=== PATIENT | male | born 1940 | race Caucasian/White ===

== ENCOUNTER 2017-04-18 12:51 | Inpatient (IN) | payer MEDICARE, BC ==
[2017-04-18] MEDS ORDERED: Albuterol Sulfate 2.5 mg/0.5 ml Neb ONE (13:30)
[2017-04-18] MEDS ORDERED: Albuterol Sulfate 2.5 mg/3 ml Neb ONE (13:31)
[2017-04-18 13:52] LABS: Bilirubin Small (Negative); Blood, Urine Negative (Negative); Glucose, Urine (Dipstick) Negative (Negative); Ketone, Urine Trace mg/dL (Negative); Nitrite Negative (Negative); Protein, Urine (Dipstick) 30 mg/dL (Neg-Trace)
[2017-04-18 13:53] LABS: RBC/HPF 0-3 HPF (0-3); WBC/HPF 21-50 HPF (0-3)
[2017-04-18 14:07] LABS: Hyaline Casts/LPF 0-3 HYALINE CAST LPF (0-3 Hyaline); Yeast-All Forms None Seen HPF (None Seen)
[2017-04-18 14:08] LABS: Bacteria/HPF 2+ HPF (None Seen); Renal Epithelial 0-3 HPF (0-3); Squamous Epithelial 0-3 HPF (0-3); Transitional Epithelial 0-3 HPF (0-3)
[2017-04-18 14:36] LABS: Hematocrit 48.1 % (42.0-52.0); Mean Platelet Volume 6.4 fL (7.4-10.4); Red Blood Cell (RBC) Count 5.18 mill/uL (4.70-6.10); White Blood Cell (WBC) Count 13.5 thou/uL (4.8-10.8)
--- NOTE | 2017-04-18 14:38 | RAD ---
AP CHEST: Indication: Dyspnea, altered mental status. Comparison: 03-13-16 FINDINGS: There is stable cardiomegaly. Pulmonary vasculature appears within normal limits. No airspace consol idation, pleural effusion, or pneumothorax is evident. No acute osseous abnormality is evident. Ther e is stable elevation of the right hemidiaphragm which can be seen with rotator cuff insufficiency. IMPRESSION: Stable cardiomegaly. POS: [facility]
[2017-04-18] MEDS ORDERED: cefTRIAXone\\ROCEPHIN 2 GM VIAL ONE (14:44)
[2017-04-18] MEDS ORDERED: Sodium Chloride 0.9% 100 ML ONE (14:45)
[2017-04-18 14:57] LABS: Neutrophil 68 % (42-75)
[2017-04-18 14:59] LABS: ALT (SGPT) 15 U/L (8-55); AST (SGOT) 20 U/L (5-34); Alkaline Phosphatase 154 U/L (40-150); Anion Gap 15 mmol/L (10-20); BUN (Urea Nitrogen) 22 mg/dL (8.4-25.7); CK (CPK) 155 U/L (30-200); Calc. Creatinine Clearance 0 mL/min (70-130); Calcium 9.5 mg/dL (7.8-10.44); Carbon Dioxide 26 mmol/L (23-31); Chloride 100 mmol/L (98-107); Estimated GFR-MDRD 65; Globulin 4.5 g/dL (2.4-3.5); Protein, Total 8.2 g/dL (5.8-8.1)
[2017-04-18 15:02] LABS: Troponin I Less than 0.010 ng/mL (< 0.028)
[2017-04-18] MEDS ORDERED: Acetaminophen 500 MG TAB ONE (16:10)
[2017-04-18] MEDS ORDERED: Acetaminophen 650 MG Suppository ONE (16:24)
[2017-04-18] MEDS ORDERED: Acetaminophen 650 MG Suppository PR PRN (17:43)
[2017-04-18] MEDS ORDERED: Acetaminophen 325 MG TAB PO PRN (17:43)
[2017-04-18 18:06] LABS: Amphetamine Not Detected (NotDetected); Methadone Not Detected (NotDetected); Methamphetamine Not Detected (NotDetected)
[2017-04-18 18:19] LABS: Troponin I 0.018 ng/mL (< 0.028)
[2017-04-18] MEDS ORDERED: Ondansetron ODT 4 MG TAB SL PRN (18:26)
[2017-04-18] MEDS ORDERED: Ondansetron HCl/PF 4 MG/2 ML Vial IVP PRN (18:26)
--- NOTE | 2017-04-18 18:57 | HP ---
PRIMARY CARE PROVIDER: Dr. Pepper Dooley. CHIEF COMPLAINT: Altered mental status. HISTORY OF PRESENT ILLNESS: Mr. Spaulding is a pleasant 76-year-old gentleman, who was seen at [facility] on 04/18/2017. The patient is unable to provide any history. His family h ad left for home. History was obtained from review of medical chart as well as from discussion with the emergency room physician. Mr. Spaulding reportedly had West Nile virus infection several years ago and has some sequelae from it. He also reportedly does not tolerate narcotic medications and usually becomes very confused. The pa rell was brought to the emergency room by his ex-, who reports that he was recently in the [facility] where he was on multiple medications including opiates. [facility] because of concern that he was not reacting well to the narcotics. Three days ago, he had a cough. She gave him some cough medicine, which had codeine in it. She did not realize it at that time. The patient has reportedly been drowsy since then. He was also compl aining of lower back pain and has not had much oral intake. He was reportedly talking the days prior to these events. REVIEW OF SYSTEMS: Could not be obtained because of patient's altered mental status. The patient was admitted at this facility in 03/2016 for syncope. PAST MEDICAL HISTORY: Significant for myocardial infarction, coronary artery disease, hypertension, dyslipidemia, and West Nile virus infection, anxiety, falls, right subdural hematoma in 2016, and d ementia. PAST SURGICAL HISTORY: Significant for splenectomy, left wrist open reduction and internal fixation . PSYCHIATRIC HISTORY: None. SOCIAL HISTORY: Patient reportedly chews tobacco. No history of alcohol use or recreational drug u se. FAMILY HISTORY: Significant for breast cancer in patient's mother. ALLERGIES: The patient is allergic to opiates. CURRENT MEDICATIONS: Aspirin 81 mg daily, metoprolol 50 mg daily. PHYSICAL EXAMINATION: GENERAL: Mr. Spaulding is awake, but not alert. VITAL SIGNS: Blood pressure is 162/88, pulse is 85, he is breathing at rate of 20 and saturating 94 % on room air. Rectal temperature is 100.3 degrees Fahrenheit. Earlier, he had a respiratory rate of 28 and rectal temperature of 101.4 degrees Fahrenheit. EYES: No scleral icterus. No conjunctival pallor. ENT: Dry mucosal membranes, no oropharyngeal erythema or exudates. NECK: Supple, nontender, trachea midline, no thyromegaly. RESPIRATORY: Accessory muscles of breathing are not active. Chest wall movements are symmetric pedro aterally. LUNGS: Clear to auscultation without wheeze, rhonchi or crepitations. CARDIOVASCULAR: S1 and S2 are heard, regular. Peripheral pulses palpable. No carotid bruit, no pe ricardial rub. ABDOMEN: Soft, nontender, bowel sounds heard, no hepatomegaly, no splenomegaly. NEUROLOGIC: Full neurologic examination was not possible secondary to the patient's noncooperation. The patient is moving all four extremities. There is no facial droop. Tongue appears midline. D eep tendon reflexes are 2+, plantar reflexes are downgoing bilaterally. MUSCULOSKELETAL: The patient is moving all four extremities. Normal passive range of movement at b oth elbows, both shoulders, both hips and both knees. SKIN: He has sacral erythema. He also has scratch arechiga over both shins. No subcutaneous nodules. LYMPHATIC: No cervical lymphadenopathy. PSYCHIATRIC: Unable to assess mood, affect and orientation to person, place, and time. LABORATORY DATA: Mr. Spaulding's labs and investigations were reviewed. I have reviewed his electrocard iogram, which shows normal sinus rhythm, no ST changes to suggest an acute coronary syndrome. I hav e also reviewed his chest x-ray, which does not show any pulmonary infiltrates. Laboratory investig ation show leukocytosis with 13,500 white cells, of which 68% are neutrophils, normal hemoglobin, no rmal platelet count, normal electrolytes, normal creatinine, elevated alkaline phosphatase of 154, e levated serum total protein of 8.2, normal total bilirubin, normal AST, normal ALT, normal calcium a nd normal lactic acid. Urinalysis is positive for glucose, trace ketones, small amount of bilirubin and leukocyte esterase. Urine bacteria is positive. ASSESSMENT AND PLAN: Mr. Spaulding is a pleasant 76-year-old gentleman who was seen at [facility] on 04/18/2017. His problem list includes: 1. Sepsis: Mr. Rodríguezs meets the criteria for sepsis, source of infection presumed to be urine. I will await cultures, including blood cultures. For now, Mr. Spaulding will be started on empiric antibio tics and intravenous fluids. He has already received a dose of vancomycin and Rocephin. I will con tinue vancomycin and switch him to Zosyn until cultures are available. 2. Encephalopathy: Etiology is unclear, could be secondary to infectious causes. Could be seconda ry to other causes as well. We will check CT scan of the brain to rule out any intracranial causes. We will also check TSH to investigate endocrine causes. We will check urine drug screen to rule o ut toxic causes. We will continue to investigate for other causes of encephalopathy. 3. Coronary artery disease. Patient reportedly did not verbalize any chest pain. First troponin I is normal. We will recheck troponin. 4. Hypertension: Continue home medications once clarified, monitor vital signs and titrate antihyp ertensives as needed. 5. Dyslipidemia: Stable. Many thanks for allowing me to participate in your patient's care. Please feel free to contact me w ith any questions or concerns. Code status could not be addressed because of patient's altered ment al status. This will be addressed in the future. LEVEL OF RISK: High. LEVEL OF COMPLEXITY: High.
--- NOTE | 2017-04-18 19:20 | CT ---
CT HEAD WITHOUT IV CONTRAST: Date: 04-18-17 History: Encephalopathy. Altered mental status. Comparison: 03-13-16 FINDINGS: Again noted are chronic small vessel ischemic changes and cerebral volume loss, the chronic small ve ssel ischemic changes may be minimally progressed from the prior exam. There is no evidence of an ac ak chin cortical infarction, hemorrhage, mass effect, or midline shift. Ventricular system is normal in size, shape, and position for the degree of sulcal atrophy. Tiny low density foci are again seen in the right cerebellar hemisphere, likely related to remote infarction. No other interval change. IMPRESSION: 1. No acute intracranial abnormalities demonstrated. 2. Chronic small vessel ischemic changes and cerebral volume loss. 3. Remote infarction right cerebellar hemisphere. POS: [facility]
[2017-04-18 20:10] VITALS: BMI 21.9
[2017-04-18 21:27] LABS: Troponin I 0.031 ng/mL (< 0.028)
[2017-04-18] MEDS: Piperacillin/Tazobactam 4.5 GM in Sodium Chloride 0.9% 100 ML IVPB SCH (21:53)
[2017-04-19] MEDS ORDERED: Sodium Chloride 0.9% 1,000 ML IV SCH (03:30)
[2017-04-19] MEDS: Piperacillin/Tazobactam 4.5 GM in Sodium Chloride 0.9% 100 ML IVPB SCH ×4 (04:11→21:52)
[2017-04-19] MEDS: Vancomycin HCl 750 MG in Sodium Chloride 0.9% 250 ML 250 ML IVPB SCH ×2 (04:14→18:47)
[2017-04-19 06:14] LABS: Band 2 % (5-11); Hematocrit 44.2 % (42.0-52.0); Mean Platelet Volume 7.2 fL (7.4-10.4); Myelocyte 1 % (0-0); Neutrophil 70 % (42-75); Red Blood Cell (RBC) Count 4.77 mill/uL (4.70-6.10); White Blood Cell (WBC) Count 10.7 thou/uL (4.8-10.8)
[2017-04-19 06:25] LABS: Anion Gap 13 mmol/L (10-20); BUN (Urea Nitrogen) 16 mg/dL (8.4-25.7); Calc. Creatinine Clearance 76 mL/min (70-130); Carbon Dioxide 23 mmol/L (23-31); Chloride 105 mmol/L (98-107); Estimated GFR-MDRD Greater than 90
[2017-04-19] MEDS: Enoxaparin Sodium 40 MG/0.4 ML SYRINGE SC SCH (08:22)
[2017-04-19] MEDS ORDERED: FLU VACC TS2017-18 (>65YR) 0.5 ML SYRINGE IM ONE (09:00)
[2017-04-19] MEDS: Aspirin 81 mg Enteric Coated Tablet PO SCH (11:14)
--- NOTE | 2017-04-19 11:54 | PDOC.PN ---
- Subjective Encounter Start Date: 04/19/17 Encounter Start Time: 07:40 Pt seen for followup re: sepsis. Pt unable to provide ROS, although able to answer some of questions by mumbling. Has back pain. - Objective MAR Reviewed: Yes Vital Signs & Weight: Vital Signs (12 hours) Temp Pulse Resp BP BP Pulse Ox 04/19/17 07:46 99.0 F 71 20 92 L 04/19/17 07:45 99.0 F 71 20 145/85 H 92 L 04/19/17 06:00 71 20 176/77 H 04/19/17 05:38 71 197/90 H 04/19/17 04:00 98.4 F 71 20 197/90 H 96 04/19/17 00:00 98.2 F 66 20 138/78 96 Weight Weight 148 lb 4.8 oz I&O: 04/18/17 04/19/17 04/20/17 06:59 06:59 06:59 Intake Total 900.5 Balance 900.5 Result Diagrams: 04/19/17 05:10 04/19/17 05:10 EKG Reviewed by me: Yes (Tele: NSR) Phys Exam - Physical Examination Constitutional: NAD HEENT: moist MMs, oral pharynx no lesions Neck: supple Respiratory: no wheezing, no rales, no rhonchi, clear to auscultation bilateral Cardiovascular: RRR, no rub Gastrointestinal: soft, non-tender, no distention, positive bowel sounds Musculoskeletal: pulses present Neurological: moves all 4 limbs Psychiatric: normal affect Deviation from normal: Oriented to person and place, not to time Skin: no rash, normal turgor, cap refill <2 seconds Dx/Plan (1) Sepsis Code(s): A41.9 - SEPSIS, UNSPECIFIED ORGANISM Status: Acute (2) Encephalopathy Code(s): G93.40 - ENCEPHALOPATHY, UNSPECIFIED Status: Acute (3) CAD (coronary artery disease) Code(s): I25.10 - ATHSCL HEART DISEASE OF [place] CORONARY ARTERY W/O ANG PCTRS Status: Chronic (4) HLD (hyperlipidemia) Code(s): E78.5 - HYPERLIPIDEMIA, UNSPECIFIED Status: Chronic (5) HTN (hypertension) Code(s): I10 - ESSENTIAL (PRIMARY) HYPERTENSION Status: Chronic Qualifiers: Hypertension type: essential hypertension Qualified Code(s): I10 - Essential (primary) hypertension - Plan continue antibiotics, PT/OT, out of bed/ambulate, DVT proph w/lovenox * . 1/2 Blood cultures positive for G+ cocci, await sensitivities (? contaminant). Continue IV Zosyn, IV vancomycin. More alert today, brief conversations. Monitor vital signs, titrate antihypertensives as needed. Toradol for back pain. Review of Systems - Medications/Allergies Allergies/Adverse Reactions: Allergies Allergy/AdvReac Type Severity Reaction Status Date / Time fentanyl Allergy Verified 04/19/17 00:17 hydrocodone Allergy Verified 04/19/17 00:17 morphine Allergy Verified 04/19/17 00:17 Opioids - Morphine Analogues Allergy Verified 04/19/17 00:17 Opioids-Meperidine and Allergy Verified 04/19/17 00:17 Related [Opioids-Meperidine & Related] Opioids-Methadone and Related Allergy Verified 04/19/17 00:17 [Opioids-Methadone & Related] Medications: Current Medications Acetaminophen (Tylenol) 650 mg PO Q4H PRN PRN Reason: Headache/Fever or Pain Acetaminophen (Tylenol) 650 mg [place] Q4H PRN PRN Reason: Headache/Fever or Pain Last Admin: 04/19/17 08:21 Dose: 650 mg Aspirin (Ecotrin) 81 mg PO DAILY [facility] Last Admin: 04/19/17 11:14 Dose: Not Given Enoxaparin Sodium (Lovenox) 40 mg SC 0900 [facility] Last Admin: 04/19/17 08:22 Dose: 40 mg Hydralazine HCl (Apresoline) 10 mg SLOW IVP Q6H PRN PRN Reason: SBP GREATER THAN 160 Last Admin: 04/19/17 05:38 Dose: 10 mg Vancomycin HCl 750 mg/ Sodium (Chloride) 250 mls @ 250 mls/hr IVPB 0300,1500 [facility] Last Admin: 04/19/17 04:14 Dose: 250 mls Piperacillin Sod/Tazobactam (Sod 4.5 gm/ Sodium Chloride) 100 mls @ 200 mls/hr IVPB Q8HR [facility] Last Admin: 04/19/17 05:39 Dose: 100 mls Ketorolac Tromethamine (Toradol) 15 mg IVP Q8H PRN PRN Reason: Moderate Pain 4-6 Stop: 04/24/17 09:24 Miscellaneous Medication (Pharmacy To Dose) 1 each IVPB PRN PRN PRN Reason: Pharmacy to dose Sodium Chloride (Flush - Normal Saline) 10 ml IVF Q12HR [facility] Last Admin: 04/19/17 08:31 Dose: Not Given Sodium Chloride (Flush - Normal Saline) 10 ml IVF PRN PRN PRN Reason: Saline Flush
[2017-04-19] MEDS: Ketorolac Tromethamine 30 MG/ML VIAL IVP PRN ×2 (13:42→19:05)
[2017-04-19] MEDS ORDERED: Vancomycin HCl 750 MG in Sodium Chloride 0.9% 250 ML 250 ML IVPB SCH (18:00)
[2017-04-20] MEDS: Piperacillin/Tazobactam 4.5 GM in Sodium Chloride 0.9% 100 ML IVPB SCH ×3 (05:09→21:26)
[2017-04-20 05:49] LABS: Vancomycin, Trough 9.8 ug/mL
[2017-04-20 05:51] LABS: #Basophils 0.1 thou/uL (0.0-0.2); #Eosinphils 0.2 thou/uL (0.0-0.7); #Lymphocytes 1.4 thou/uL (1.20-3.40); #Monocytes 1.5 thou/uL (0.11-0.59); #Neutrophils 8.6 thou/uL (1.40-6.50); %Basophils 0.8 % (0.0-1.0); %Eosinophils 1.8 % (0.0-10.0); %Lymphocytes 11.5 % (21.0-51.0); Mean Platelet Volume 7.5 fL (7.4-10.4); Red Blood Cell (RBC) Count 4.83 mill/uL (4.70-6.10); White Blood Cell (WBC) Count 11.9 thou/uL (4.8-10.8)
[2017-04-20 05:57] LABS: Calcium 9.4 mg/dL (7.8-10.44); Chloride 109 mmol/L (98-107)
[2017-04-20 05:59] LABS: Carbon Dioxide 16 mmol/L (23-31)
[2017-04-20 06:01] LABS: Calc. Creatinine Clearance 74 mL/min (70-130); Estimated GFR-MDRD Greater than 90
[2017-04-20 06:02] LABS: BUN (Urea Nitrogen) 16 mg/dL (8.4-25.7)
[2017-04-20] MEDS: Vancomycin HCl 1.25 GM in Sodium Chloride 0.9% 250 ML 250 ML IVPB SCH ×2 (06:02→18:36)
[2017-04-20 06:19] LABS: Anion Gap 14 mmol/L (10-20)
[2017-04-20] MEDS: Aspirin 81 mg Enteric Coated Tablet PO SCH (08:21)
[2017-04-20] MEDS: Enoxaparin Sodium 40 MG/0.4 ML SYRINGE SC SCH (08:21)
[2017-04-20] MEDS ORDERED: Bisacodyl 5 MG TAB PO PRN (08:56)
[2017-04-20] MEDS ORDERED: Bisacodyl 5 MG TAB PO SCH (09:00)
[2017-04-20] MEDS ORDERED: Bisacodyl 10 MG SUPP PR PRN (09:23)
[2017-04-20] MEDS ORDERED: Bisacodyl 10 MG SUPP PR SCH (09:30)
[2017-04-20] MEDS: Ketorolac Tromethamine 30 MG/ML VIAL IVP PRN (10:16)
--- NOTE | 2017-04-20 11:12 | PDOC.PN ---
- Subjective Encounter Start Date: 04/20/17 Encounter Start Time: 09:20 Pt seen for followup re; sepsis. More alert today, mumbling, answering questions. No chest pain, fever, shortness of breath. - Objective Vital Signs & Weight: Vital Signs (12 hours) Temp Pulse Resp BP Pulse Ox 04/20/17 07:52 98.1 F 81 16 166/85 H 96 04/20/17 04:00 98.2 F 78 18 176/77 H 94 L 04/20/17 00:00 98 F 85 18 145/84 H 94 L Weight Weight 148 lb 4.8 oz I&O: 04/19/17 04/20/17 04/21/17 06:59 06:59 06:59 Intake Total 1350.5 Balance 1350.5 Result Diagrams: 04/20/17 05:08 04/20/17 05:08 Phys Exam - Physical Examination Constitutional: NAD HEENT: moist MMs Neck: supple Respiratory: clear to auscultation bilateral Cardiovascular: RRR Gastrointestinal: soft Musculoskeletal: pulses present Neurological: moves all 4 limbs Psychiatric: normal affect Skin: no rash Dx/Plan (1) Sepsis Code(s): A41.9 - SEPSIS, UNSPECIFIED ORGANISM Status: Acute (2) Encephalopathy Code(s): G93.40 - ENCEPHALOPATHY, UNSPECIFIED Status: Acute (3) CAD (coronary artery disease) Code(s): I25.10 - ATHSCL HEART DISEASE OF [place] CORONARY ARTERY W/O ANG PCTRS Status: Chronic (4) HLD (hyperlipidemia) Code(s): E78.5 - HYPERLIPIDEMIA, UNSPECIFIED Status: Chronic (5) HTN (hypertension) Code(s): I10 - ESSENTIAL (PRIMARY) HYPERTENSION Status: Chronic Qualifiers: Hypertension type: essential hypertension Qualified Code(s): I10 - Essential (primary) hypertension - Plan continue antibiotics, PT/OT, out of bed/ambulate, DVT proph w/lovenox * . 1/2 blood cultures growing MSSE. Await final blood culture report. Continue IV Zosyn and vancomycin for now. Encephalopathy clearing up, likely due to a combination of infection and opioid use. CAD stable. Review of Systems - Review of Systems Constitutional: negative: Fever, Chills, Sweats, Weakness, Malaise Respiratory: negative: Cough, Dry, Shortness of Breath, Hemoptysis, SOB with Excertion, Pleuritic Pain, Sputum, Wheezing Cardiovascular: negative: Chest Pain, Palpitations, Orthopnea, Paroxysmal Noc. Dyspnea, Edema, Light Headedness - Medications/Allergies Allergies/Adverse Reactions: Allergies Allergy/AdvReac Type Severity Reaction Status Date / Time fentanyl Allergy Verified 04/19/17 00:17 hydrocodone Allergy Verified 04/19/17 00:17 morphine Allergy Verified 04/19/17 00:17 Opioids - Morphine Analogues Allergy Verified 04/19/17 00:17 Opioids-Meperidine and Allergy Verified 04/19/17 00:17 Related [Opioids-Meperidine & Related] Opioids-Methadone and Related Allergy Verified 04/19/17 00:17 [Opioids-Methadone & Related] Medications: Current Medications Acetaminophen (Tylenol) 650 mg PO Q4H PRN PRN Reason: Headache/Fever or Pain Acetaminophen (Tylenol) 650 mg [place] Q4H PRN PRN Reason: Headache/Fever or Pain Last Admin: 04/19/17 08:21 Dose: 650 mg Aspirin (Ecotrin) 81 mg PO DAILY [facility] Last Admin: 04/20/17 08:21 Dose: Not Given Bisacodyl (Dulcolax) 10 mg TN PRN PRN PRN Reason: Constipation Enoxaparin Sodium (Lovenox) 40 mg SC 0900 [facility] Last Admin: 04/20/17 08:21 Dose: 40 mg Hydralazine HCl (Apresoline) 10 mg SLOW IVP Q6H PRN PRN Reason: SBP GREATER THAN 160 Last Admin: 04/19/17 18:58 Dose: 10 mg Piperacillin Sod/Tazobactam (Sod 4.5 gm/ Sodium Chloride) 100 mls @ 200 mls/hr IVPB Q8HR [facility] Last Admin: 04/20/17 05:09 Dose: 100 mls Vancomycin HCl 1.25 gm/ Sodium (Chloride) 250 mls @ 166.667 mls/hr IVPB 0600, 1800 [facility] Last Admin: 04/20/17 06:02 Dose: 250 mls Ketorolac Tromethamine (Toradol) 15 mg IVP Q8H PRN PRN Reason: Moderate Pain 4-6 Stop: 04/24/17 09:24 Last Admin: 04/20/17 10:16 Dose: 15 mg Miscellaneous Medication (Pharmacy To Dose) 1 each IVPB PRN PRN PRN Reason: Pharmacy to dose Sodium Chloride (Flush - Normal Saline) 10 ml IVF Q12HR [facility] Last Admin: 04/20/17 08:21 Dose: 10 ml Sodium Chloride (Flush - Normal Saline) 10 ml IVF PRN PRN PRN Reason: Saline Flush
[2017-04-21] MEDS: Piperacillin/Tazobactam 4.5 GM in Sodium Chloride 0.9% 100 ML IVPB SCH ×3 (04:46→20:38)
[2017-04-21] MEDS: Vancomycin HCl 1.25 GM in Sodium Chloride 0.9% 250 ML 250 ML IVPB SCH (04:46)
[2017-04-21 05:56] LABS: #Eosinphils 0.1 thou/uL (0.0-0.7); #Lymphocytes 1.4 thou/uL (1.20-3.40); #Monocytes 1.5 thou/uL (0.11-0.59); #Neutrophils 12.8 thou/uL (1.40-6.50); %Basophils 0.2 % (0.0-1.0); %Eosinophils 0.3 % (0.0-10.0); %Lymphocytes 8.9 % (21.0-51.0); %Monocytes 9.3 % (0.0-10.0); Hematocrit 40.8 % (42.0-52.0); Mean Platelet Volume 7.1 fL (7.4-10.4); Red Blood Cell (RBC) Count 4.43 mill/uL (4.70-6.10); White Blood Cell (WBC) Count 15.8 thou/uL (4.8-10.8)
[2017-04-21 06:26] LABS: Anion Gap 12 mmol/L (10-20); BUN (Urea Nitrogen) 23 mg/dL (8.4-25.7); Calc. Creatinine Clearance 55 mL/min (70-130); Calcium 9.2 mg/dL (7.8-10.44); Carbon Dioxide 23 mmol/L (23-31); Chloride 110 mmol/L (98-107); Estimated GFR-MDRD 63
--- NOTE | 2017-04-21 08:47 | CT ---
CT ABDOMEN AND PELVIS WITHOUT CONTRAST: Date: 04/21/17 HISTORY: CT abdomen and pelvis without contrast. HISTORY: UTI, sepsis. FINDINGS: Absence of oral and IV contrast reduces the sensitivity of exam, particularly for evaluation of nishant d organs and bowel. There is a small right pleural effusion. No free air or free fluid is seen in the abdomen. No calcif ied gallstones are noted. No calcified stones are noted in the kidneys, ureters, or the urinary blad jacqueline. No hydronephrosis noted on either side. There is fecal material in the colon and rectum. The rectum is distended with thickening of the wall and mild perirectal inflammatory change. There is some fluid in the presacral space. The small bowel loops are not abnormally dilated. There is a right inguinal hernia containing nonobs tructed small bowel loop. There are vascular calcifications without evidence of aneurysmal dilatation of the abdominal aorta. There are degenerative changes in the spine. A small hiatal hernia is present. IMPRESSION: 1. Findings suspicious for stercoral colitis. 2. No CT evidence of urinary tract calculi or obstruction. 3. Small right pleural effusion. 4. Small hiatal hernia. Findings discussed over the telephone with Dr. Voss at 0809 hours. CODE CR. POS: [facility]
[2017-04-21] MEDS: Enoxaparin Sodium 40 MG/0.4 ML SYRINGE SC SCH (10:34)
[2017-04-21] MEDS: Aspirin 81 mg Enteric Coated Tablet PO SCH (10:41)
--- NOTE | 2017-04-21 13:22 | ULT ---
BILATERAL LOWER EXTREMITY VENOUS DUPLEX EXAM: History: Leg pain. FINDINGS: Real-time color doppler evaluation of the right and left lower extremities were performed from groin to calf. This includes evaluation of common femoral, superficial and profunda femoral, saphenous, p opliteal, as well as trifurcation veins. This shows a patent deep venous system. There is normal compressibility and augmentation. There is n o evidence of DVT. IMPRESSION: No evidence of DVT of either lower extremity. POS: [facility]
--- NOTE | 2017-04-21 13:24 | RAD ---
PORTABLE CHEST: Comparison: 07-31-14, 04-18-17 History: Cough. FINDINGS: Heart size appears borderline enlarged for portable technique. There are atherosclerotic changes in the aorta. Chronic lung changes are seen without any focal infiltrates. IMPRESSION: Mild cardiomegaly with chronic appearing lung change. POS: [facility]
[2017-04-21] MEDS: Sodium Chloride 0.9% 1,000 ML IV SCH (13:44)
--- NOTE | 2017-04-21 16:19 | PDOC.PN ---
- Subjective Encounter Start Date: 04/21/17 Encounter Start Time: 13:00 Subjective: awake, responds to verbal stimuli -: not fully oriented -: no sob, mouth is dry - Objective MAR Reviewed: Yes Vital Signs & Weight: Vital Signs (12 hours) Temp Pulse Resp BP BP Pulse Ox 04/21/17 11:57 98.4 F 72 16 156/69 H 93 L 04/21/17 07:53 98.2 F 83 16 149/72 H 93 L 04/21/17 04:46 79 169/81 H Weight Weight 148 lb 4.8 oz I&O: 04/20/17 04/21/17 04/22/17 06:59 06:59 06:59 Intake Total 1350.5 450 Balance 1350.5 450 Result Diagrams: 04/21/17 05:17 04/21/17 05:17 Phys Exam - Physical Examination HEENT: PERRLA, moist MMs Neck: no JVD, supple Respiratory: no wheezing, no rales Cardiovascular: RRR, no significant murmur Gastrointestinal: soft, non-tender, positive bowel sounds Musculoskeletal: pulses present Neurological: non-focal, moves all 4 limbs Dx/Plan (1) Sepsis Code(s): A41.9 - SEPSIS, UNSPECIFIED ORGANISM Status: Acute (2) UTI (urinary tract infection) Status: Acute Qualifiers: Urinary tract infection type: acute cystitis Hematuria presence: without hematuria Qualified Code(s): N30.00 - Acute cystitis without hematuria (3) Encephalopathy Code(s): G93.40 - ENCEPHALOPATHY, UNSPECIFIED Status: Acute (4) TBI (traumatic brain injury) Code(s): S06.9X9A - UNSP INTRACRANIAL INJURY W LOC OF UNSP DURATION, INIT Status: Chronic Qualifiers: Encounter type: sequela (5) CAD (coronary artery disease) Code(s): I25.10 - ATHSCL HEART DISEASE OF [place] CORONARY ARTERY W/O ANG PCTRS Status: Chronic Qualifiers: Coronary Disease-Associated Artery/Lesion type: [place] artery [place] vs. transplanted heart: [place] heart Associated angina: without angina Qualified Code(s): I25.10 - Atherosclerotic heart disease of [place] coronary artery without angina pectoris (6) HLD (hyperlipidemia) Code(s): E78.5 - HYPERLIPIDEMIA, UNSPECIFIED Status: Chronic Qualifiers: Hyperlipidemia type: unspecified Qualified Code(s): E78.5 - Hyperlipidemia , unspecified (7) HTN (hypertension) Code(s): I10 - ESSENTIAL (PRIMARY) HYPERTENSION Status: Chronic Qualifiers: Hypertension type: essential hypertension Qualified Code(s): I10 - Essential (primary) hypertension - Plan had temp of 100 last night -: is on vanc and zosyn -: cxr, usg venous doppler is -ve -: ct abd shows stercoral rectal ulcer, likely due to constipation -: await cultures, d/w ex and POA and gave an update * . Review of Systems - Medications/Allergies Allergies/Adverse Reactions: Allergies Allergy/AdvReac Type Severity Reaction Status Date / Time fentanyl Allergy Verified 04/19/17 00:17 hydrocodone Allergy Verified 04/19/17 00:17 morphine Allergy Verified 04/19/17 00:17 Opioids - Morphine Analogues Allergy Verified 04/19/17 00:17 Opioids-Meperidine and Allergy Verified 04/19/17 00:17 Related [Opioids-Meperidine & Related] Opioids-Methadone and Related Allergy Verified 04/19/17 00:17 [Opioids-Methadone & Related] Medications: Current Medications Acetaminophen (Tylenol) 650 mg PO Q4H PRN PRN Reason: Headache/Fever or Pain Acetaminophen (Tylenol) 650 mg ID Q4H PRN PRN Reason: Headache/Fever or Pain Last Admin: 04/19/17 08:21 Dose: 650 mg Aspirin (Ecotrin) 81 mg PO DAILY [facility] Last Admin: 04/21/17 10:41 Dose: 81 mg Bisacodyl (Dulcolax) 10 mg ID PRN PRN PRN Reason: Constipation Enoxaparin Sodium (Lovenox) 40 mg SC 0900 [facility] Last Admin: 04/21/17 10:34 Dose: 40 mg Fludrocortisone Acetate (Florinef) 0.1 mg PO DAILY [facility] Hydralazine HCl (Apresoline) 10 mg SLOW IVP Q6H PRN PRN Reason: SBP GREATER THAN 160 Last Admin: 04/21/17 04:46 Dose: 10 mg Piperacillin Sod/Tazobactam (Sod 4.5 gm/ Sodium Chloride) 100 mls @ 200 mls/hr IVPB Q8HR [facility] Last Admin: 04/21/17 13:44 Dose: 100 mls Vancomycin HCl 1.25 gm/ Sodium (Chloride) 250 mls @ 166.667 mls/hr IVPB 0600, 1800 [facility] Last Admin: 04/21/17 04:46 Dose: 250 mls Sodium Chloride (Normal Saline 0.9%) 1,000 mls @ 70 mls/hr IV .[id number] [facility] Last Admin: 04/21/17 13:44 Dose: 1,000 mls Ketorolac Tromethamine (Toradol) 15 mg IVP Q8H PRN PRN Reason: Moderate Pain 4-6 Stop: 04/24/17 09:24 Last Admin: 04/20/17 10:16 Dose: 15 mg Miscellaneous Medication (Pharmacy To Dose) 1 each IVPB PRN PRN PRN Reason: Pharmacy to dose Sodium Chloride (Flush - Normal Saline) 10 ml IVF Q12HR [facility] Last Admin: 04/21/17 10:34 Dose: 10 ml Sodium Chloride (Flush - Normal Saline) 10 ml IVF PRN PRN PRN Reason: Saline Flush
[2017-04-21 17:17] LABS: Vancomycin, Trough 28.1 ug/mL
[2017-04-22] MEDS: Piperacillin/Tazobactam 4.5 GM in Sodium Chloride 0.9% 100 ML IVPB SCH ×3 (05:00→21:51)
[2017-04-22] MEDS: Vancomycin HCl 1 GM in Premix Bag 1 BAG IVPB SCH ×2 (05:00→18:26)
[2017-04-22] MEDS: Aspirin 81 mg Enteric Coated Tablet PO SCH (10:00)
[2017-04-22] MEDS: Enoxaparin Sodium 40 MG/0.4 ML SYRINGE SC SCH (10:00)
[2017-04-22] MEDS: Fludrocortisone Acetate 0.1 MG TAB PO SCH (10:01)
[2017-04-22] MEDS: Sodium Chloride 0.9% 1,000 ML IV SCH ×2 (10:07→18:24)
--- NOTE | 2017-04-22 16:11 | PDOC.PN ---
- Subjective Encounter Start Date: 04/22/17 Encounter Start Time: 12:40 Subjective: awake, responds to verbal questions -: no sob - Objective MAR Reviewed: Yes Vital Signs & Weight: Vital Signs (12 hours) Temp Pulse Resp BP Pulse Ox 04/22/17 11:50 98 F 65 16 137/81 95 04/22/17 08:16 63 04/22/17 08:00 98.3 F 63 16 04/22/17 07:57 98.3 F 63 16 180/84 H 95 04/22/17 07:15 98 F 68 20 185/93 H 96 04/22/17 04:42 95 Weight Weight 148 lb 4.8 oz I&O: 04/21/17 04/22/17 04/23/17 06:59 06:59 06:59 Intake Total 450 680 Balance 450 680 Result Diagrams: 04/21/17 05:17 04/21/17 05:17 Phys Exam - Physical Examination HEENT: PERRLA, moist MMs Neck: no JVD, supple Respiratory: no wheezing, no rales Cardiovascular: RRR, no significant murmur Gastrointestinal: soft, non-tender, positive bowel sounds Musculoskeletal: no edema, pulses present Neurological: non-focal Dx/Plan (1) Sepsis Code(s): A41.9 - SEPSIS, UNSPECIFIED ORGANISM Status: Acute Qualifiers: Sepsis type: sepsis due to unspecified organism Qualified Code(s): A41.9 - Sepsis, unspecified organism (2) UTI (urinary tract infection) Status: Acute Qualifiers: Urinary tract infection type: acute cystitis Hematuria presence: without hematuria Qualified Code(s): N30.00 - Acute cystitis without hematuria (3) Encephalopathy Code(s): G93.40 - ENCEPHALOPATHY, UNSPECIFIED Status: Acute (4) TBI (traumatic brain injury) Code(s): S06.9X9A - UNSP INTRACRANIAL INJURY W LOC OF UNSP DURATION, INIT Status: Chronic Qualifiers: Encounter type: sequela (5) CAD (coronary artery disease) Code(s): I25.10 - ATHSCL HEART DISEASE OF [place] CORONARY ARTERY W/O ANG PCTRS Status: Chronic Qualifiers: Coronary Disease-Associated Artery/Lesion type: [place] artery [place] vs. transplanted heart: [place] heart Associated angina: without angina Qualified Code(s): I25.10 - Atherosclerotic heart disease of [place] coronary artery without angina pectoris (6) HLD (hyperlipidemia) Code(s): E78.5 - HYPERLIPIDEMIA, UNSPECIFIED Status: Chronic Qualifiers: Hyperlipidemia type: unspecified Qualified Code(s): E78.5 - Hyperlipidemia , unspecified (7) HTN (hypertension) Code(s): I10 - ESSENTIAL (PRIMARY) HYPERTENSION Status: Chronic Qualifiers: Hypertension type: essential hypertension Qualified Code(s): I10 - Essential (primary) hypertension - Plan is on vanc and zosyn -: labs in am -: urine cs is pending -: 1 mrse blood cs, likely contaminated -: is severely deconditioned and was unable to even stand with assistance-PT * . Review of Systems - Medications/Allergies Allergies/Adverse Reactions: Allergies Allergy/AdvReac Type Severity Reaction Status Date / Time fentanyl Allergy Verified 04/19/17 00:17 hydrocodone Allergy Verified 04/19/17 00:17 morphine Allergy Verified 04/19/17 00:17 Opioids - Morphine Analogues Allergy Verified 04/19/17 00:17 Opioids-Meperidine and Allergy Verified 04/19/17 00:17 Related [Opioids-Meperidine & Related] Opioids-Methadone and Related Allergy Verified 04/19/17 00:17 [Opioids-Methadone & Related] Medications: Current Medications Acetaminophen (Tylenol) 650 mg PO Q4H PRN PRN Reason: Headache/Fever or Pain Acetaminophen (Tylenol) 650 mg [place] Q4H PRN PRN Reason: Headache/Fever or Pain Last Admin: 04/19/17 08:21 Dose: 650 mg Aspirin (Ecotrin) 81 mg PO DAILY [facility] Last Admin: 04/22/17 10:00 Dose: 81 mg Bisacodyl (Dulcolax) 10 mg [place] PRN PRN PRN Reason: Constipation Enoxaparin Sodium (Lovenox) 40 mg SC 0900 [facility] Last Admin: 04/22/17 10:00 Dose: 40 mg Fludrocortisone Acetate (Florinef) 0.1 mg PO DAILY [facility] Last Admin: 04/22/17 10:01 Dose: 0.1 mg Hydralazine HCl (Apresoline) 10 mg SLOW IVP Q6H PRN PRN Reason: SBP GREATER THAN 160 Last Admin: 04/22/17 08:16 Dose: 10 mg Piperacillin Sod/Tazobactam (Sod 4.5 gm/ Sodium Chloride) 100 mls @ 200 mls/hr IVPB Q8HR [facility] Last Admin: 04/22/17 05:00 Dose: 100 mls Sodium Chloride (Normal Saline 0.9%) 1,000 mls @ 70 mls/hr IV .[id number] [facility] Last Admin: 04/22/17 10:07 Dose: Not Given Vancomycin HCl 1 gm/ Device 200 mls @ 200 mls/hr IVPB 0600,1800 [facility] Last Admin: 04/22/17 05:00 Dose: 200 mls Miscellaneous Medication (Pharmacy To Dose) 1 each IVPB PRN PRN PRN Reason: Pharmacy to dose Sodium Chloride (Flush - Normal Saline) 10 ml IVF Q12HR [facility] Last Admin: 04/22/17 08:18 Dose: 10 ml Sodium Chloride (Flush - Normal Saline) 10 ml IVF PRN PRN PRN Reason: Saline Flush
[2017-04-23] MEDS: Piperacillin/Tazobactam 4.5 GM in Sodium Chloride 0.9% 100 ML IVPB SCH ×3 (05:55→21:45)
[2017-04-23] MEDS: Vancomycin HCl 1 GM in Premix Bag 1 BAG IVPB SCH ×2 (05:55→17:18)
[2017-04-23] MEDS: Aspirin 81 mg Enteric Coated Tablet PO SCH (09:45)
[2017-04-23] MEDS: Enoxaparin Sodium 40 MG/0.4 ML SYRINGE SC SCH (09:45)
[2017-04-23] MEDS: Fludrocortisone Acetate 0.1 MG TAB PO SCH (09:45)
[2017-04-23] MEDS: Sodium Chloride 0.9% 1,000 ML IV SCH ×2 (13:27→21:45)
--- NOTE | 2017-04-23 14:50 | PDOC.PN ---
- Subjective Encounter Start Date: 04/23/17 Encounter Start Time: 13:00 Subjective: awake, not in distress -: follows verbal stimuli - Objective MAR Reviewed: Yes Vital Signs & Weight: Vital Signs (12 hours) Temp Pulse Resp BP Pulse Ox 04/23/17 11:40 98.2 F 66 16 174/101 H 96 04/23/17 11:13 67 20 95 04/23/17 08:00 98.2 F 66 16 04/23/17 07:40 98.2 F 66 20 163/85 H 95 Weight Weight 148 lb 4.8 oz I&O: 04/22/17 04/23/17 04/24/17 06:59 06:59 06:59 Intake Total 680 Balance 680 Result Diagrams: 04/21/17 05:17 04/21/17 05:17 Phys Exam - Physical Examination HEENT: PERRLA, sclera anicteric Neck: no JVD, supple Respiratory: no wheezing, no rales Cardiovascular: RRR, no significant murmur Gastrointestinal: soft, non-tender, positive bowel sounds Musculoskeletal: no edema, pulses present Neurological: non-focal, moves all 4 limbs Dx/Plan (1) Sepsis Code(s): A41.9 - SEPSIS, UNSPECIFIED ORGANISM Status: Acute Qualifiers: Sepsis type: sepsis due to unspecified organism Qualified Code(s): A41.9 - Sepsis, unspecified organism (2) UTI (urinary tract infection) Status: Acute Qualifiers: Urinary tract infection type: acute cystitis Hematuria presence: without hematuria Qualified Code(s): N30.00 - Acute cystitis without hematuria (3) Encephalopathy Code(s): G93.40 - ENCEPHALOPATHY, UNSPECIFIED Status: Acute (4) TBI (traumatic brain injury) Code(s): S06.9X9A - UNSP INTRACRANIAL INJURY W LOC OF UNSP DURATION, INIT Status: Chronic Qualifiers: Encounter type: sequela (5) CAD (coronary artery disease) Code(s): I25.10 - ATHSCL HEART DISEASE OF [place] CORONARY ARTERY W/O ANG PCTRS Status: Chronic Qualifiers: Coronary Disease-Associated Artery/Lesion type: [place] artery [place] vs. transplanted heart: [place] heart Associated angina: without angina Qualified Code(s): I25.10 - Atherosclerotic heart disease of [place] coronary artery without angina pectoris (6) HLD (hyperlipidemia) Code(s): E78.5 - HYPERLIPIDEMIA, UNSPECIFIED Status: Chronic Qualifiers: Hyperlipidemia type: unspecified Qualified Code(s): E78.5 - Hyperlipidemia , unspecified (7) HTN (hypertension) Code(s): I10 - ESSENTIAL (PRIMARY) HYPERTENSION Status: Chronic Qualifiers: Hypertension type: essential hypertension Qualified Code(s): I10 - Essential (primary) hypertension - Plan 1/2 coag -ve staph, likely contaminant -: is afebrile, await leucocytosis to resolve -: encourage po intake -: may dc iv fluids in am -: is on vanc and zosyn * . Review of Systems - Medications/Allergies Allergies/Adverse Reactions: Allergies Allergy/AdvReac Type Severity Reaction Status Date / Time fentanyl Allergy Verified 04/19/17 00:17 hydrocodone Allergy Verified 04/19/17 00:17 morphine Allergy Verified 04/19/17 00:17 Opioids - Morphine Analogues Allergy Verified 04/19/17 00:17 Opioids-Meperidine and Allergy Verified 04/19/17 00:17 Related [Opioids-Meperidine & Related] Opioids-Methadone and Related Allergy Verified 04/19/17 00:17 [Opioids-Methadone & Related] Medications: Current Medications Acetaminophen (Tylenol) 650 mg PO Q4H PRN PRN Reason: Headache/Fever or Pain Acetaminophen (Tylenol) 650 mg [place] Q4H PRN PRN Reason: Headache/Fever or Pain Last Admin: 04/19/17 08:21 Dose: 650 mg Aspirin (Ecotrin) 81 mg PO DAILY [facility] Last Admin: 04/23/17 09:45 Dose: 81 mg Bisacodyl (Dulcolax) 10 mg [place] PRN PRN PRN Reason: Constipation Enoxaparin Sodium (Lovenox) 40 mg SC 0900 [facility] Last Admin: 04/23/17 09:45 Dose: 40 mg Fludrocortisone Acetate (Florinef) 0.1 mg PO DAILY [facility] Last Admin: 04/23/17 09:45 Dose: 0.1 mg Hydralazine HCl (Apresoline) 10 mg SLOW IVP Q6H PRN PRN Reason: SBP GREATER THAN 160 Last Admin: 04/22/17 08:16 Dose: 10 mg Piperacillin Sod/Tazobactam (Sod 4.5 gm/ Sodium Chloride) 100 mls @ 200 mls/hr IVPB Q8HR [facility] Last Admin: 04/23/17 13:33 Dose: 100 mls Sodium Chloride (Normal Saline 0.9%) 1,000 mls @ 70 mls/hr IV .[id number] [facility] Last Admin: 04/23/17 13:27 Dose: Not Given Vancomycin HCl 1 gm/ Device 200 mls @ 200 mls/hr IVPB 0600,1800 [facility] Last Admin: 04/23/17 05:55 Dose: 200 mls Miscellaneous Medication (Pharmacy To Dose) 1 each IVPB PRN PRN PRN Reason: Pharmacy to dose Sodium Chloride (Flush - Normal Saline) 10 ml IVF Q12HR [facility] Last Admin: 04/23/17 09:45 Dose: 10 ml Sodium Chloride (Flush - Normal Saline) 10 ml IVF PRN PRN PRN Reason: Saline Flush
[2017-04-23 17:50] LABS: Vancomycin, Trough 25.3 ug/mL
[2017-04-24 05:56] LABS: #Basophils 0.1 thou/uL (0.0-0.2); #Eosinphils 0.8 thou/uL (0.0-0.7); #Lymphocytes 1.8 thou/uL (1.20-3.40); #Monocytes 1.2 thou/uL (0.11-0.59); #Neutrophils 6.5 thou/uL (1.40-6.50); %Basophils 0.7 % (0.0-1.0); %Eosinophils 7.5 % (0.0-10.0); %Lymphocytes 17.1 % (21.0-51.0); %Monocytes 11.8 % (0.0-10.0); Hematocrit 41.2 % (42.0-52.0); Red Blood Cell (RBC) Count 4.39 mill/uL (4.70-6.10); White Blood Cell (WBC) Count 10.3 thou/uL (4.8-10.8)
[2017-04-24 06:18] LABS: Vancomycin, Trough 24.4 ug/mL
[2017-04-24 06:22] LABS: Anion Gap 13 mmol/L (10-20); BUN (Urea Nitrogen) 14 mg/dL (8.4-25.7); Calc. Creatinine Clearance 72 mL/min (70-130); Calcium 9.1 mg/dL (7.8-10.44); Carbon Dioxide 23 mmol/L (23-31); Chloride 107 mmol/L (98-107); Estimated GFR-MDRD 87
[2017-04-24] MEDS ORDERED: Vancomycin HCl 750 MG in Sodium Chloride 0.9% 250 ML 250 ML IVPB SCH ×2 (06:30→18:00)
[2017-04-24] MEDS: Vancomycin HCl 1 GM in Premix Bag 1 BAG IVPB SCH (07:26)
[2017-04-24] MEDS: Piperacillin/Tazobactam 4.5 GM in Sodium Chloride 0.9% 100 ML IVPB SCH (07:26)
[2017-04-24] MEDS: Aspirin 81 mg Enteric Coated Tablet PO SCH (08:51)
[2017-04-24] MEDS: Fludrocortisone Acetate 0.1 MG TAB PO SCH (08:51)
[2017-04-24] MEDS: Enoxaparin Sodium 40 MG/0.4 ML SYRINGE SC SCH (08:51)
--- NOTE | 2017-04-24 12:31 | PDOC.PN ---
- Subjective Encounter Start Date: 04/24/17 Encounter Start Time: 11:45 Subjective: awake, not fully oriented -: ex and POA at bedside -: appears to be at his baseline cognition - Objective MAR Reviewed: Yes Vital Signs & Weight: Vital Signs (12 hours) Temp Pulse Resp BP Pulse Ox 04/24/17 11:30 98.1 F 78 20 175/102 H 95 04/24/17 08:00 97.9 F 58 L 18 04/24/17 07:48 97.9 F 58 L 18 171/57 H 95 04/24/17 04:00 98.2 F 77 20 130/84 96 Weight Weight 148 lb 4.8 oz I&O: 04/23/17 04/24/17 04/25/17 06:59 06:59 06:59 Intake Total 1000 Balance 1000 Result Diagrams: 04/24/17 04:57 04/24/17 04:57 Phys Exam - Physical Examination HEENT: PERRLA, moist MMs Neck: no JVD, supple Respiratory: no wheezing, no rales rhonchi+ Cardiovascular: RRR, no significant murmur Gastrointestinal: soft, non-tender, positive bowel sounds Musculoskeletal: no edema, pulses present Neurological: non-focal, moves all 4 limbs Dx/Plan (1) Sepsis Code(s): A41.9 - SEPSIS, UNSPECIFIED ORGANISM Status: Acute Qualifiers: Sepsis type: sepsis due to unspecified organism Qualified Code(s): A41.9 - Sepsis, unspecified organism (2) UTI (urinary tract infection) Status: Acute Qualifiers: Urinary tract infection type: acute cystitis Hematuria presence: without hematuria Qualified Code(s): N30.00 - Acute cystitis without hematuria (3) Encephalopathy Code(s): G93.40 - ENCEPHALOPATHY, UNSPECIFIED Status: Acute (4) TBI (traumatic brain injury) Code(s): S06.9X9A - UNSP INTRACRANIAL INJURY W LOC OF UNSP DURATION, INIT Status: Chronic Qualifiers: Encounter type: sequela (5) CAD (coronary artery disease) Code(s): I25.10 - ATHSCL HEART DISEASE OF [place] CORONARY ARTERY W/O ANG PCTRS Status: Chronic Qualifiers: Coronary Disease-Associated Artery/Lesion type: [place] artery [place] vs. transplanted heart: [place] heart Associated angina: without angina Qualified Code(s): I25.10 - Atherosclerotic heart disease of [place] coronary artery without angina pectoris (6) HLD (hyperlipidemia) Code(s): E78.5 - HYPERLIPIDEMIA, UNSPECIFIED Status: Chronic Qualifiers: Hyperlipidemia type: unspecified Qualified Code(s): E78.5 - Hyperlipidemia , unspecified (7) HTN (hypertension) Code(s): I10 - ESSENTIAL (PRIMARY) HYPERTENSION Status: Chronic Qualifiers: Hypertension type: essential hypertension Qualified Code(s): I10 - Essential (primary) hypertension - Plan diet per speech therapy advice -: likely has aspiration issues, wbc down to 12 from 15 -: all cultures were taken after antibiotics were started -: [facility] -: on vanc and zosyn for now, may switch to augmentin/levaquin * . Review of Systems - Medications/Allergies Allergies/Adverse Reactions: Allergies Allergy/AdvReac Type Severity Reaction Status Date / Time fentanyl Allergy Verified 04/19/17 00:17 hydrocodone Allergy Verified 04/19/17 00:17 morphine Allergy Verified 04/19/17 00:17 Opioids - Morphine Analogues Allergy Verified 04/19/17 00:17 Opioids-Meperidine and Allergy Verified 04/19/17 00:17 Related [Opioids-Meperidine & Related] Opioids-Methadone and Related Allergy Verified 04/19/17 00:17 [Opioids-Methadone & Related] Medications: Current Medications Acetaminophen (Tylenol) 650 mg PO Q4H PRN PRN Reason: Headache/Fever or Pain Acetaminophen (Tylenol) 650 mg [place] Q4H PRN PRN Reason: Headache/Fever or Pain Last Admin: 04/19/17 08:21 Dose: 650 mg Aspirin (Ecotrin) 81 mg PO DAILY [facility] Last Admin: 04/24/17 08:51 Dose: 81 mg Bisacodyl (Dulcolax) 10 mg [place] PRN PRN PRN Reason: Constipation Enoxaparin Sodium (Lovenox) 40 mg SC 0900 [facility] Last Admin: 04/24/17 08:51 Dose: 40 mg Fludrocortisone Acetate (Florinef) 0.1 mg PO DAILY [facility] Last Admin: 04/24/17 08:51 Dose: 0.1 mg Hydralazine HCl (Apresoline) 10 mg SLOW IVP Q6H PRN PRN Reason: SBP GREATER THAN 160 Last Admin: 04/22/17 08:16 Dose: 10 mg Piperacillin Sod/Tazobactam (Sod 4.5 gm/ Sodium Chloride) 100 mls @ 200 mls/hr IVPB Q8HR [facility] Last Admin: 04/24/17 07:26 Dose: 100 mls Sodium Chloride (Normal Saline 0.9%) 1,000 mls @ 70 mls/hr IV .[id number] [facility] Last Admin: 04/23/17 21:45 Dose: 1,000 mls Vancomycin HCl 750 mg/ Sodium (Chloride) 250 mls @ 250 mls/hr IVPB 0600,1800 [facility] Miscellaneous Medication (Pharmacy To Dose) 1 each IVPB PRN PRN PRN Reason: Pharmacy to dose Sodium Chloride (Flush - Normal Saline) 10 ml IVF Q12HR [facility] Last Admin: 04/23/17 21:45 Dose: Not Given Sodium Chloride (Flush - Normal Saline) 10 ml IVF PRN PRN PRN Reason: Saline Flush
[2017-04-24] MEDS: Amoxicillin/Potassium Clav 875 MG TAB PO SCH (22:02)
[2017-04-25 05:52] LABS: #Basophils 0.1 thou/uL (0.0-0.2); #Eosinphils 0.7 thou/uL (0.0-0.7); #Lymphocytes 1.9 thou/uL (1.20-3.40); #Monocytes 1.2 thou/uL (0.11-0.59); #Neutrophils 4.9 thou/uL (1.40-6.50); %Basophils 0.9 % (0.0-1.0); %Eosinophils 8.3 % (0.0-10.0); %Lymphocytes 21.4 % (21.0-51.0); %Monocytes 13.8 % (0.0-10.0); Mean Platelet Volume 6.2 fL (7.4-10.4); Red Blood Cell (RBC) Count 4.24 mill/uL (4.70-6.10); White Blood Cell (WBC) Count 8.9 thou/uL (4.8-10.8)
[2017-04-25 06:15] LABS: Anion Gap 13 mmol/L (10-20); BUN (Urea Nitrogen) 14 mg/dL (8.4-25.7); Calc. Creatinine Clearance 73 mL/min (70-130); Calcium 8.9 mg/dL (7.8-10.44); Carbon Dioxide 21 mmol/L (23-31); Chloride 109 mmol/L (98-107); Estimated GFR-MDRD 88
[2017-04-25] MEDS ORDERED: Metoprolol Tartrate 25 MG TAB PO SCH (09:00)
[2017-04-25 09:14] VITALS: TEMP 98.2
[2017-04-25] MEDS: Aspirin 81 mg Enteric Coated Tablet PO SCH (09:35)
[2017-04-25] MEDS: Enoxaparin Sodium 40 MG/0.4 ML SYRINGE SC SCH (09:35)
[2017-04-25] MEDS: Amoxicillin/Potassium Clav 875 MG TAB PO SCH (09:35)
[2017-04-25] MEDS: Fludrocortisone Acetate 0.1 MG TAB PO SCH (09:36)
[2017-04-25 11:25] VITALS: BP 109/68
--- NOTE | 2017-04-25 14:36 | DIS ---
DATE OF ADMISSION: 04/18/2017 DATE OF DISCHARGE: 04/25/2017 PRIMARY CARE PHYSICIAN: Floyd Dooley MD DISCHARGE DISPOSITION: halfway with home health. PRIMARY DISCHARGE DIAGNOSES: 1. Acute encephalopathy, resolved. 2. Sepsis, improved. 3. Urinary tract infection. 4. Positive blood culture, likely contaminant. SECONDARY DISCHARGE DIAGNOSES: History of traumatic brain injury, hypertension, dyslipidemia, histo ry of tobacco abuse, history of alcohol abuse, chronic diastolic heart failure, coronary artery dise ase, anxiety and depression, physical deconditioning. PRIMARY PROCEDURE/OPERATION: None. RADIOLOGICAL INVESTIGATION: Chest x-ray on admission showed stable cardiomegaly. CT brain on admis jim showed no acute intracranial process, chronic small vessel ischemic changes, remote infarction in the right cerebellum. Abdomen and pelvis CT scan showed no findings suspicious for stercoral col itis, small hiatal hernia, and right pleural effusion. Ultrasound negative for any DVT. Echocardio graphy showed diastolic dysfunction. SIGNIFICANT LABORATORY DATA: WBC 8.9, hemoglobin 12.6, platelets 337. Sodium 139, potassium 3.7, c hloride 109, carbon dioxide 21, BUN 14, creatinine 0.85, calcium 8.9, and BNP 565.2. Liver enzymes normal. Troponin 0.031, TSH 0.92. Urinalysis suggestive of urinary tract infection. Urine drug sc reen negative. Urine culture negative. Blood culture positive for Staph aureus, coagulase negative , 1 out of 2 which was likely contaminated. DISCHARGE MEDICATIONS: Tylenol 650 mg p.o. q.4 hourly p.r.n., amlodipine 5 mg p.o. daily, Augmentin 875 mg twice daily for 7 days, aspirin 81 mg p.o. daily, and fludrocortisone 0.1 mg p.o. daily, met oprolol tartrate 25 mg p.o. b.i.d. CONTRAINDICATIONS: None. CODE STATUS: FULL CODE. INPATIENT IN ROOM DINING SERVER: None. ALLERGIES: FENTANYL, HYDROCODONE, MORPHINE, and OPIOID. DISCHARGE PLAN: Post hospital, the patient is discharged home with home health. Patient will follo w up with primary care physician. HOSPITAL COURSE: A 76-year-old male who was admitted by Dr. Mansfield on 04/18/2017. Please see his H\ T\P for further details. The patient was admitted for altered mental status. He was found with uri nary tract infection. The patient also had physical weakness. He was making some sepsis criteria o n admission. He was treated with vancomycin and Zosyn. In the emergency room, he had chest x-ray which was normal. CT brain was negative for any acute int racranial process. Abdomen and pelvis CT scan showed stercoral colitis. He had elevated BNP and th at is why echocardiography was done which showed diastolic dysfunction. His ultrasound was negative for any DVT. While in hospital, he had significant improvement. Upon discharge, we changed to Augmentin therapy. For his blood pressure, we started metoprolol tartrate and amlodipine. On discharge, we arranged home health for him. The patient is seen and examined at bedside today. Paperwork for discharge done. Discharge medicat ion reconciliation done. Review of systems negative. PHYSICAL EXAMINATION: VITAL SIGNS: Currently, temperature 98.2, pulse 62, respiratory rate 20, saturation 94%, blood pres sure 136/72, weight 148 pounds. GENERAL: The patient is currently alert, awake, no acute distress. HEAD: Normocephalic, atraumatic. LUNGS: Clear to auscultation without any rhonchi or rales. CARDIAC: S1 and S2 regular without any significant murmur. ABDOMEN: Soft and benign. EXTREMITIES: No edema. NEUROLOGIC: Nonfocal examination. Overall, patient is medically stable for discharge today. Total time spent on discharge day 31 minutes.
== END 2017-04-25 14:47 | disposition home health service (06) | DRG 871 ==
LOC: ERS 12:51 → 2NO 16:45 → T4-B 04-19 17:45
PROVIDERS: ADMIT Internal Medicine; ATTEND Internal Medicine
DX: A41.9 Sepsis, unspecified organism (principal); G92 Toxic encephalopathy; G93.41 Metabolic encephalopathy; I11.0 Hypertensive heart disease with heart failure; I50.42 Chronic combined systolic (congestive) and diastolic (congestive) heart failure; N39.0 Urinary tract infection, site not specified; E78.5 Hyperlipidemia, unspecified; Z87.891 Personal history of nicotine dependence; I25.10 Atherosclerotic heart disease of native coronary artery without angina pectoris; F41.9 Anxiety disorder, unspecified; F32.9 Major depressive disorder, single episode, unspecified; F17.220 Nicotine dependence, chewing tobacco, uncomplicated; T50.995A Adverse effect of other drugs, medicaments and biological substances, initial encounter
CPT/HCPCS: 36415; 36416; 51701; 70450; 71010; 74176; 80048; 80053; 80202; 80306; 81003; 81015; 82553; 83605; 83880; 84443; 84484; 85025; 87040; 87086; 87149; 90471; 90682; 93005; 93306; 93970; 94640; 96361; 96365; 96367; A4216; G0008; G8978-GP-CM; G8979-GP-CL; G8996-GN-CK; G8996-GN-CL; G8997-GN-CI; J0360; J0696; J1650; J1885; J2543; J3370; J7050; J7611; J7620; Q2036

== ENCOUNTER 2017-05-12 13:35 | Observation (INO) | payer MEDICARE, BC ==
[2017-05-12 14:40] LABS: #Basophils 0.1 thou/uL (0.0-0.2); #Eosinphils 0.2 thou/uL (0.0-0.7); #Lymphocytes 1.9 thou/uL (1.20-3.40); #Neutrophils 5.8 thou/uL (1.40-6.50); %Basophils 0.6 % (0.0-1.0); %Eosinophils 1.9 % (0.0-10.0); %Lymphocytes 21.7 % (21.0-51.0); %Monocytes 11.3 % (0.0-10.0); Hematocrit 41.6 % (42.0-52.0); Mean Platelet Volume 6.3 fL (7.4-10.4); Red Blood Cell (RBC) Count 4.47 mill/uL (4.70-6.10); White Blood Cell (WBC) Count 8.9 thou/uL (4.8-10.8)
[2017-05-12 15:00] LABS: ALT (SGPT) 12 U/L (8-55); AST (SGOT) 17 U/L (5-34); Alkaline Phosphatase 114 U/L (40-150); Anion Gap 12 mmol/L (10-20); BUN (Urea Nitrogen) 12 mg/dL (8.4-25.7); Bilirubin, Total 0.8 mg/dL (0.2-1.2); CK (CPK) 158 U/L (30-200); Calc. Creatinine Clearance 0 mL/min (70-130); Calcium 9.5 mg/dL (7.8-10.44); Carbon Dioxide 27 mmol/L (23-31); Chloride 102 mmol/L (98-107); Estimated GFR-MDRD Greater than 90; Globulin 4.2 g/dL (2.4-3.5); Protein, Total 7.6 g/dL (5.8-8.1)
[2017-05-12 15:03] LABS: Troponin I Less than 0.010 ng/mL (< 0.028)
[2017-05-12 15:07] LABS: Bilirubin Negative (Negative); Blood, Urine Negative (Negative); Glucose, Urine (Dipstick) Negative (Negative); Ketone, Urine Trace mg/dL (Negative); Nitrite Negative (Negative); Protein, Urine (Dipstick) Trace mg/dL (Neg-Trace)
[2017-05-12 15:08] LABS: Bacteria/HPF None Seen HPF (None Seen); Hyaline Casts/LPF 0-3 HYALINE CAST LPF (0-3 Hyaline); RBC/HPF 0-3 HPF (0-3); Squamous Epithelial None Seen HPF (0-3); WBC/HPF 0-3 HPF (0-3)
--- NOTE | 2017-05-12 15:40 | RAD ---
FRONTAL VIEW CHEST: Date: 05/12/17 COMPARISON: 04/21/17. CLINICAL HISTORY: Dyspnea. FINDINGS: The cardiac silhouette is accentuated by portable technique and patient rotation. Interstitial opaci ties of each lung are present, which may be on the basis of edema or chronic interstitial lung disea se. There is slight blunting of the left lateral costophrenic sulcus, grossly stable. Chest otherwis e similar in appearance to 04/21/17. IMPRESSION: Mild bilateral interstitial prominence which could relate to edema or interstitial lung disease. Cor relate clinically. POS: [facility]
[2017-05-12] MEDS ORDERED: Bisacodyl 10 MG SUPP ONE (16:17)
[2017-05-12] MEDS ORDERED: Magnesium Citrate 300 ML BOT ONE (16:17)
--- NOTE | 2017-05-12 16:36 | RAD ---
ABDOMEN ONE VIEW: HISTORY: Abdominal pain. FINDINGS: A large amount of stool is apparent within the colon and rectum. Small bowel gas pattern is nonspec ific. Phleboliths project over the pelvis. There are degenerative changes of the hips and lumbar s pine. IMPRESSION: Constipation. POS: [facility]
[2017-05-12] MEDS ORDERED: Fleet Enema 133 ML BOT PR SCH (19:00)
[2017-05-12] MEDS ORDERED: Dextrose 5 %-0.45 % NaCl 1,000 ML IV SCH (21:56)
[2017-05-12] MEDS ORDERED: Ondansetron ODT 4 MG TAB SL PRN (21:56)
[2017-05-12] MEDS ORDERED: Ondansetron HCl/PF 4 MG/2 ML Vial IVP PRN (21:56)
[2017-05-13] MEDS ORDERED: hydrALAZINE 20 MG/ML VIAL SLOW IVP PRN (00:27)
[2017-05-13] MEDS ORDERED: Ondansetron HCl/PF 4 MG/2 ML Vial IVP PRN (00:35)
[2017-05-13] MEDS ORDERED: Ondansetron ODT 4 MG TAB PO PRN (00:35)
[2017-05-13] MEDS ORDERED: Calcium Carbonate 500 MG ChewTAB PO PRN (00:35)
[2017-05-13] MEDS ORDERED: Mag-Al 1200 mg/1200 mg/30 ML UDCUP PO PRN (00:35)
[2017-05-13] MEDS ORDERED: Acetaminophen 325 MG TAB PO PRN (00:35)
[2017-05-13] MEDS ORDERED: Docusate 100 MG CAP PO PRN (00:40)
[2017-05-13] MEDS: Sodium Chloride 0.9% 1,000 ML IV SCH ×2 (01:57→07:59)
[2017-05-13 04:57] LABS: Anion Gap 11 mmol/L (10-20); BUN (Urea Nitrogen) 10 mg/dL (8.4-25.7); Calc. Creatinine Clearance 88 mL/min (70-130); Calcium 9.1 mg/dL (7.8-10.44); Carbon Dioxide 28 mmol/L (23-31); Chloride 102 mmol/L (98-107); Estimated GFR-MDRD Greater than 90
[2017-05-13] MEDS ORDERED: Magnesium Citrate 300 ML BOT PO SCH (06:00)
[2017-05-13] MEDS ORDERED: Enoxaparin Sodium 40 MG/0.4 ML SYRINGE SC SCH (09:00)
[2017-05-13] MEDS ORDERED: Metoprolol Tartrate 25 MG TAB PO SCH (09:00)
[2017-05-13] MEDS ORDERED: Aspirin 81 mg Enteric Coated Tablet PO SCH (09:00)
[2017-05-13] MEDS ORDERED: Amlodipine 5 MG TAB PO SCH (09:00)
[2017-05-13] MEDS ORDERED: Fludrocortisone Acetate 0.1 MG TAB PO SCH (09:00)
--- NOTE | 2017-05-13 09:21 | PDOC.FM ---
- Subjective Subjective: Pt has end stage dementia and is unable to communicate. There were no issues since admission and pt had a BM in the ED - Objective Vital Signs & Weight: Vital Signs (12 hours) Temp Pulse Resp BP BP Pulse Ox 05/13/17 08:04 98.3 F 66 16 124/70 97 05/13/17 08:00 98.3 F 66 16 05/13/17 07:59 59 L 181/83 H 05/13/17 00:42 59 L 181/83 H 05/12/17 21:59 98.3 F 66 20 Weight Weight 68 kg I&O: 05/12/17 05/13/17 05/14/17 06:59 06:59 06:59 Intake Total 1509 120 Balance 1509 120 Result Diagrams: 05/12/17 14:29 05/13/17 03:45 Phys Exam - Physical Examination Constitutional: NAD HEENT: moist MMs Neck: no nodes, no JVD Respiratory: clear to auscultation bilateral Cardiovascular: RRR, no significant murmur Gastrointestinal: soft, non-tender, no distention, positive bowel sounds Musculoskeletal: no edema Deviation from normal: Pt is A&Ox0 and unable to communicate Skin: no rash, normal turgor Dx/Plan (1) Constipation Code(s): K59.00 - CONSTIPATION, UNSPECIFIED Status: Resolved Qualifiers: Constipation type: unspecified constipation type Qualified Code(s): K59.00 - Constipation, unspecified Plan: Pt had a BM in ED after receiving mag citrate and colace. Ready to dc (2) Dementia Code(s): F03.90 - UNSPECIFIED DEMENTIA WITHOUT BEHAVIORAL DISTURBANCE Status: Chronic Qualifiers: Dementia type: unspecified type Plan: Pt is apparently at baseline He is unable to effectively communicate, however does not appear to be in distress or pain (3) HTN (hypertension) Code(s): I10 - ESSENTIAL (PRIMARY) HYPERTENSION Status: Chronic Qualifiers: Hypertension type: essential hypertension Qualified Code(s): I10 - Essential (primary) hypertension Plan: Pt had a systolic bp over 200 at one point, however this responded to hydralazine and has been under control since. Unsure how reliably this pt takes his meds Continue home meds hydralazine prn
[2017-05-13 11:40] VITALS: BP 108/60; TEMP 98.8
--- NOTE | 2017-05-13 14:59 | HP ---
CHIEF COMPLAINT: Constipation. HISTORY OF PRESENT ILLNESS: Mr. Spaulding is a 76-year-old white male patient, who was seen in our ER ye sterday with constipation. He had no signs of an acute abdomen. He was given some mild enemas, Dul colax, etc and just before coming to the floor had a bowel movement and feels much better. PHYSICAL EXAMINATION: VITAL SIGNS: His blood pressure is 124/70. He is afebrile, pulse rate 66 and regular, respirations 16, room air O2 sat 97%. ENT: Moist mucous membranes. CARDIAC: Heart rhythm regular. LUNGS: Clear. ABDOMEN: Completely flat, benign and soft. NEUROLOGICAL: No focal neurological defects. LABORATORY DATA: CBC: White count 8900, hemoglobin 12.9, and hematocrit 41.6 with an MCV of 93. C hemistries: Sodium 137, potassium 3.5, chloride 102, bicarbonate 27, BUN 12, creatinine 0.8. Liver enzymes are normal. ASSESSMENT: Constipation, resolved. PLAN: Discharge.
--- NOTE | 2017-05-13 15:01 | DIS-2 ---
DATE OF ADMISSION: 05/12/2017 DATE OF DISCHARGE: 05/13/2017 RESIDENT: Catrachito Quinones D.O. ADMITTING ATTENDING: oJhn Kenney M.D. DISCHARGE ATTENDING: John Kenney M.D. CONSULTATIONS: None. PROCEDURES: None. PRIMARY DIAGNOSIS: Constipation. SECONDARY DIAGNOSES: Hypertension, dementia. DISCHARGE MEDICATIONS: Aspirin 81 daily, acetaminophen 650 q.4 hours p.r.n., fludrocortisone acetat e 0.1 p.o. daily, Augmentin 875 q.12 hours x14, amlodipine 5 mg p.o. daily and metoprolol 25 mg q.12 hours. DISCONTINUED MEDICATIONS: None. HOSPITAL COURSE: The patient presented to the emergency room from a nursing facility, have not had a bowel movement in approximately 10 days. The patient was given magnesium citrate and Dulcolax in the emergency room where he had a bowel movement and was then admitted. The patient had one blood p ressure over 200, was given hydralazine, blood pressure went down to 150s systolic and was maintaine d. At that point, the patient appeared to be in no pain and constipation had resolved, so the patie nt was discharged home on home meds. The patient has significant dementia worse at night. Even when he is more interactive, communicates poorly, does not answer questions appropriately. DISPOSITION: Stable. DISCHARGE INSTRUCTIONS: 1. Location: Home nursing facility. 2. Diet: Regular with home restrictions. 3. Activity: Ad keri with a monitor. 4. Followup: Follow up within 1 week with PCP.
--- NOTE | 2017-05-13 23:15 | HP-2 ---
DATE OF ADMISSION: 05/12/2017 DATE OF SERVICE: 05/12/2017 LOCATION: [place], [place]. COSIGNER: John Kenney MD CODE STATUS: FULL. PRIMARY CARE PHYSICIAN: [facility] ATTENDING PHYSICIAN: John Kenney MD RESIDENT PHYSICIAN: Dileep Yun DO HISTORIAN: History provided by ER physician and reports. CHIEF COMPLAINT: Constipation. HISTORY OF PRESENT ILLNESS: Per the ER physician, the patient has not had a bowel movement for approximately 10 days. In the ED, he received mag citrate, Dulcolax and had a bowel movement but was admitted to the floor. The patient has end-stage dementia and does not communicate at baseline, obtaining a pertinent history of present illness was difficult to obtain. ER: In the ER, the patient was given mag citrate, Dulcolax, and 1 liter normal saline. PAST MEDICAL HISTORY: Coronary artery disease, AL, hypertension, hyperlipidemia , depression, anxiety, and dementia. PAST SURGICAL HISTORY: Status post CABG as well as splenectomy. ALLERGIES: The patient is allergic to OPIOIDS. MEDICATIONS: 1. Seroquel 75 mg b.i.d. 2. Citalopram 20 mg daily. 3. Metoprolol 50 mg per day. 4. Lisinopril 2.5 mg per day. 5. Aspirin 81 mg per day. FAMILY HISTORY: Unable to obtain. SOCIAL HISTORY: Unable to obtain. REVIEW OF SYSTEMS: Positive for constipation only per the ER physician. All of the review of systems was unable to obtain secondary to the patient not been aphasic and does not communicate at baseline. PHYSICAL EXAMINATION: VITAL SIGNS: Blood pressure 135/96, pulse 76, respirations 20, T-max 98.9, pulse oximetry 100% on room air. His current weight is 68 kilograms. GENERAL: The patient is not alert and oriented x0, although in no acute distress, resting comfortably in bed, appears thin. CARDIOVASCULAR: Regular rate and rhythm. No murmurs, rubs, or gallops. Radial pulses 2+, pedal pulses 2+. RESPIRATORY: Normal effort, no retractions. LUNGS: Clear to auscultation bilaterally. SKIN: Warm and dry. No cyanosis. ABDOMEN: Soft, nontender to palpation. There are normoactive bowel sounds in all 4 quadrants. There are no masses, distention, or organomegaly, and the abdomen is not hypertympanic. Physical exam was performed after the patient did have a bowel movement in the ED. EXTREMITIES: No clubbing, cyanosis, or edema. NEUROLOGIC: No gross motor deficits. The patient is moving all extremities. LABORATORY DATA: White blood cell count 8.9, hemoglobin 12.9, hematocrit 41.6, platelets 332,000. Sodium 137, potassium 3.5, chloride 102, bicarbonate 27, BUN 12, creatinine 0.8, glucose 103, calcium 9.5, total protein 77.6, albumin 3.4, AST 17, ALT 12, alkaline phosphatase 114, total bilirubin 0.8. CK is 158, CK-MB is 2.9. Troponin is less than 0.010. The UA was grossly negative for any signs or symptoms of an infection. The EKG showed normal sinus rhythm. Chest x-ray showed no acute disease. Abdominal x-ray showed constipation. ASSESSMENT AND PLAN: Constipation, resolved. The patient had a bowel movement in the ED and was admitted to the medical floor. The plan will be to continue the bowel regimen and gentle IV fluid hydration with normal saline at 125 mL per hour. The patient will likely be stable for discharge tomorrow. DISPOSITION AND LENGTH OF HOSPITAL STAY: The patient is stable. Expected length of stay less than or equal to 1 day. Symptomatic medications will be provided. History and physical exam, as well as management, was discussed with Dr. John Kenney who agrees with the above history, physical exam, assessment and plan unless otherwise noted. [facility]
--- NOTE | 2017-05-14 13:47 | EKG ---
Test Reason : SOB Blood Pressure : / mmHG Vent. Rate : 075 BPM Atrial Rate : 075 BPM P-R Int : 160 ms QRS Dur : 074 ms QT Int : 416 ms P-R-T Axes : 094 014 049 degrees QTc Int : 464 ms Normal sinus rhythm Possible Inferior infarct , age undetermined Abnormal ECG Confirmed by ОЛЬГА STANFORD, ERIK ([id number]), editor city DORETHA NUÑEZ ([id number]) on 05/14/2017 1:47:17 PM Referred By: Confirmed By:ERIK ROLON MD
== END 2017-05-13 15:38 ==
LOC: ERS 13:35 → T4-B 20:00
PROVIDERS: ADMIT Family Medicine; ATTEND Family Medicine
DX: K59.00 Constipation, unspecified (principal); I10 Essential (primary) hypertension; F03.90 Unspecified dementia, unspecified severity, without behavioral disturbance, psychotic disturbance, mood disturbance, and anxiety; I25.10 Atherosclerotic heart disease of native coronary artery without angina pectoris; F32.9 Major depressive disorder, single episode, unspecified; E78.5 Hyperlipidemia, unspecified; I25.2 Old myocardial infarction; F41.9 Anxiety disorder, unspecified; Z79.82 Long term (current) use of aspirin; Z79.52 Long term (current) use of systemic steroids; Z79.899 Other long term (current) drug therapy; Z88.5 Allergy status to narcotic agent; Z95.1 Presence of aortocoronary bypass graft; Z90.81 Acquired absence of spleen; Z87.891 Personal history of nicotine dependence
CPT/HCPCS: 51701; 71010; 74000; 80048; 80053; 82550; 82553; 82962; 84484; 85025; 93005; 96361 ×2; 96372; 96374; 97139; 97530; 99285; 99406; G0378; G8978; G8979; 36415; 36416; 81003; 81015; 96360; J0360; J1650

== ENCOUNTER 2017-09-19 12:42 | Inpatient (IN) | payer MEDICARE, BC ==
--- NOTE | 2017-09-19 13:24 | RAD ---
CHEST ONE VIEW: HISTORY: Fever. COMPARISON: 05/12/2017 FINDINGS: The cardiac silhouette is magnified and at the upper limits of normal in size. The mediastinum is mi dline with aortic calcification. The lungs remain hyperinflated with scattered areas of scarring. N o lobar consolidation or evidence of pneumothorax. Old left rib fractures are apparent. IMPRESSION: 1. Chronic obstructive pulmonary disease. 2. Atherosclerosis. POS: SURYA
[2017-09-19 13:35] LABS: Mean Corpuscular HGB CONC 31.6 g/dL (32.0-36.0); Mean Corpuscular Hemoglobin 28.8 pg (27.0-31.0); Mean Corpuscular Volume 91.1 fl (80.0-94.0); Mean Platelet Volume 7.2 fL (7.4-10.4); Platelet Count 251 thou/uL (130-400); RBC Distribution Width 13.3 % (11.5-14.5); Red Blood Cell (RBC) Count 4.51 mill/uL (4.70-6.10); White Blood Cell (WBC) Count 34.3 thou/uL (4.8-10.8)
[2017-09-19 13:56] LABS: Band 13 % (5-11); Lymphocytes 2 % (21-51); MDiff Complete? YES; Metamyelocyte 1 % (0-0); Monocytes 4 % (0-10); Neutrophil 77 % (42-75); Ovalocytes SLIGHT = 2-5 cells (100X) (0-1/hpf); PLT Morphology Comment Appears Adequate; Reactive Lymphocytes 3 % (0-10)
[2017-09-19 14:47] LABS: Albumin 3.2 g/dL (3.4-4.8)
[2017-09-19 14:48] LABS: Chloride 103 mmol/L (98-107); Potassium 3.8 mmol/L (3.5-5.1); Sodium 137 mmol/L (136-145)
[2017-09-19 14:49] LABS: Calcium 9.3 mg/dL (7.8-10.44)
[2017-09-19 14:50] LABS: Globulin 3.6 g/dL (2.4-3.5); Glucose 142 mg/dL (83-110); Protein, Total 6.8 g/dL (5.8-8.1)
[2017-09-19 14:51] LABS: Anion Gap 11 mmol/L (10-20); Carbon Dioxide 27 mmol/L (23-31)
[2017-09-19 14:52] LABS: Bilirubin Small (Negative); Blood, Urine Moderate (Negative); Clarity CLOUDY (Clear); Glucose, Urine (Dipstick) Negative (Negative); Leukocyte Moderate (Negative); Nitrite Positive (Negative); Protein, Urine (Dipstick) 100 mg/dL (Neg-Trace); Specific Gravity, Urine 1.028 (1.002-1.036); pH, Urine 5.5 (5.0-9.0)
[2017-09-19 14:52] LABS: Bilirubin, Total 0.7 mg/dL (0.2-1.2)
[2017-09-19 14:53] LABS: Bacteria/HPF 4+ HPF (None Seen); RBC/HPF 0-3 HPF (0-3); Yeast-AUWi Flag 5.9 (0-25.0)
[2017-09-19 14:53] LABS: Alkaline Phosphatase 106 U/L (40-150); Calc. Creatinine Clearance 0 mL/min (70-130); Estimated GFR-MDRD 66
[2017-09-19 14:54] LABS: Pathc Cast-AUWi Flag 7.72 (0-2.49)
[2017-09-19 14:54] LABS: BUN (Urea Nitrogen) 27 mg/dL (8.4-25.7)
[2017-09-19 14:55] LABS: AST (SGOT) 22 U/L (5-34)
[2017-09-19 14:56] LABS: ALT (SGPT) 12 U/L (8-55)
[2017-09-19 15:04] LABS: Hyaline Casts/LPF NONE SEEN LPF (0-3 Hyaline); Other Casts/LPF None Seen LPF (0-3 Hyaline)
[2017-09-19 15:05] LABS: Squamous Epithelial 0-3 HPF (0-3)
--- NOTE | 2017-09-19 15:31 | PDOC.FPRHP ---
Addendum entered and electronically signed by Audrey Leonard MD 16:28: Original Note: - History of Present Illness Chief Complaint: AMS History of Present Illness: 77 yo male presents with one day history of increased AMS. Patients states that he was feeling generally tired but not exactly sure why he was brought to the ED. EMS states his called EMS because of a concern for UTI. He states he was having burning with urination. He denies any pain at time of examination. Patient is not sure where he lives. He knows his name but not location or date. His family was not present during this interview and the patient is not a reliable historian. ED Course: Vancomycin, Rocephin, 1 L NS bolus - Allergies/Adverse Reactions Allergies Allergy/AdvReac Type Severity Reaction Status Date / Time fentanyl Allergy Verified 04/19/17 00:17 hydrocodone Allergy Verified 04/19/17 00:17 morphine Allergy Verified 04/19/17 00:17 Opioids - Morphine Analogues Allergy Verified 04/19/17 00:17 Opioids-Meperidine and Allergy Verified 04/19/17 00:17 Related [Opioids-Meperidine & Related] Opioids-Methadone and Related Allergy Verified 04/19/17 00:17 [Opioids-Methadone & Related] - Home Medications Medication Instructions Recorded Confirmed Type Aspirin [Adult Low Dose Aspirin EC] 81 mg PO DAILY 08/01/14 04/19/17 History Acetaminophen [Tylenol Regular 650 mg PO Q4H PRN #0 tab 08/14/14 04/19/17 Rx Strength] Fludrocortisone Acetate 0.1 tab PO DAILY 04/19/17 04/19/17 History Amlodipine Besylate [amLODIPine 5 mg PO DAILY #30 tablet 04/25/17 Rx Besylate] Amoxicillin/Potassium Clav 875 mg PO Q12HR #14 tab 04/25/17 Rx [Augmentin] Metoprolol Tartrate 25 mg PO Q12HR #60 tab 04/25/17 Rx Comments: Patient's ex- was not present for interview, but will bring list of medications to be reconciled at a later time. - History PMHx: Dementia, CAD, HTN, Depression, Anxiety PSHx: CABG, Splenectomy FHx: Non-Contributory Social: unable to obtain - Review of Systems ROS unobtainable: due to mental status Genitourinary: reports: incontinence, dysuria - Vital signs BP: [95/55] HR: [57] RR: [20] Tmax: [] Pox: [95]% on [RA] Wt: [81.6 kg] - Physical Exam Constitutional: NAD HEENT: normocephalic and atraumatic, PERRLA, conjunctiva clear Neck: supple Heart: RRR, normal S1/S2 Lungs: CTAB, no wheezing Abdomen: soft, bowel sounds present, no masses/distention -Abdomen: Suprapubic tenderness Musculoskeletal: normal structure, normal tone Neurological: no focal deficit, CN II-XII intact -Neurological: Patient was not compliant with exam Skin: no rash/lesions Psychiatric: normal mood and affect -Psychiatric: A & O times one. Ex- was contacted and said that is his baseline. He is usually more articulate than he is today. FMR H&P: Results - Labs Result Diagrams: 09/19/17 13:30 09/19/17 14:29 Lab results: WBC 34.3 thou/uL (4.8-10.8) H 09/19/17 13:30 Hgb 13.0 g/dL (14.0-18.0) L 09/19/17 13:30 Hct 41.1 % (42.0-52.0) L 09/19/17 13:30 MCV 91.1 fl (80.0-94.0) 09/19/17 13:30 Plt Count 251 thou/uL (130-400) 09/19/17 13:30 Band Neuts % (Manual) 13 % (5-11) H 09/19/17 13:30 Sodium 137 mmol/L (136-145) 09/19/17 14:29 Potassium 3.8 mmol/L (3.5-5.1) 09/19/17 14:29 Chloride 103 mmol/L (98-107) 09/19/17 14:29 Carbon Dioxide 27 mmol/L (23-31) 09/19/17 14:29 BUN 27 mg/dL (8.4-25.7) H 09/19/17 14:29 Creatinine 1.09 mg/dL (0.6-1.3) 09/19/17 14:29 Glucose 142 mg/dL (83-110) H 09/19/17 14:29 Lactic Acid 2.3 mmol/L (0.5-2.2) H 09/19/17 13:30 Calcium 9.3 mg/dL (7.8-10.44) 09/19/17 14:29 Total Bilirubin 0.7 mg/dL (0.2-1.2) 09/19/17 14:29 AST 22 U/L (5-34) 09/19/17 14:29 ALT 12 U/L (8-55) 09/19/17 14:29 Alkaline Phosphatase 106 U/L (40-150) 09/19/17 14:29 Serum Total Protein 6.8 g/dL (5.8-8.1) 09/19/17 14: Albumin 3.2 g/dL (3.4-4.8) L 09/19/17 14:29 Urine Ketones Negative mg/dL (Negative) 09/19/17 14:30 Urine Blood Moderate (Negative) H 09/19/17 14:30 Urine Nitrite Positive (Negative) H 09/19/17 14:30 Ur Leukocyte Esterase Moderate (Negative) H 09/19/17 14:30 Urine RBC 0-3 HPF (0-3) 09/19/17 14:30 Urine WBC Greater Than 50-TNTC HPF (0-3) H 09/19/17 14:30 Ur Squamous Epith Cells 0-3 HPF (0-3) 09/19/17 14:30 Urine Bacteria 4+ HPF (None Seen) H 09/19/17 14:30 FMR H&P: A/P - Problem List (1) Encephalopathy Current Visit: No Status: Acute Code(s): G93.40 - ENCEPHALOPATHY, UNSPECIFIED (2) UTI (urinary tract infection) Current Visit: No Status: Acute Qualifiers: Urinary tract infection type: acute cystitis Hematuria presence: without hematuria Qualified Code(s): N30.00 - Acute cystitis without hematuria (3) Leukocytosis Current Visit: Yes Status: Acute Code(s): D72.829 - ELEVATED WHITE BLOOD CELL COUNT, UNSPECIFIED (4) Elevated lactic acid level Current Visit: Yes Status: Acute Code(s): R79.89 - OTHER SPECIFIED ABNORMAL FINDINGS OF BLOOD CHEMISTRY (5) Chronic diastolic (congestive) heart failure Current Visit: No Status: Chronic Code(s): I50.32 - CHRONIC DIASTOLIC ( CONGESTIVE) HEART FAILURE (6) Dementia Current Visit: No Status: Chronic Code(s): F03.90 - UNSPECIFIED DEMENTIA WITHOUT BEHAVIORAL DISTURBANCE Qualifiers: Dementia type: unspecified type (7) HLD (hyperlipidemia) Current Visit: No Status: Chronic Code(s): E78.5 - HYPERLIPIDEMIA, UNSPECIFIED Qualifiers: Hyperlipidemia type: unspecified Qualified Code(s): E78.5 - Hyperlipidemia , unspecified (8) HTN (hypertension) Current Visit: No Status: Chronic Code(s): I10 - ESSENTIAL (PRIMARY) HYPERTENSION Qualifiers: Hypertension type: essential hypertension Qualified Code(s): I10 - Essential (primary) hypertension (9) S/P splenectomy Current Visit: Yes Status: Acute - Plan 1. Encephalopathy - Likely secondary to UTI - Will make fall precautions 2. UTI - Vancomycin 09/19, Ceftriaxone 09/19 - Blood culture pending - Urine culture pending - Will de-escalate therapy when cultures result 3. dCHF - Continue home meds when known 4. Dementia - Continue home meds when known 5. HTN - Continue home meds when known 6. HLD - Continue home meds when known 7. Elevated Lactic Acid - Repeat in two hours - Monitor for signs/symptoms of sepsis - IVF @ 150 ml/hr 8. Leukocytosis - Track with CBC - Likely secondary to infection 9. S/P Splenectomy - Aggressive antibiotic coverage CODE STATUS: FULL CODE Disposition: Stable. Will treat with IVF and antibiotics. Await culture results FMR H&P: Upper Level - Pertinent history 77yo CM with PMHx of dementia, CAD, HFpEF (55-60%), HTN and Anxiety/Depression who presents to ED via EMS due to altered mental status. Patient is not able to provide history due to dementia, but does state he has had burning with urination. Per ex- who is POA, she visited him today and noticed that he was not articulating his words very well and concerned he might have a UTI. Currently resides with 3 other individuals and receives 24hr care. In ED given: Vancomycin, Rocephin, 1L NS bolus - Pertinent findings Gen: NAD, A&Ox1 (self), cachetic HEENT: PERRLA Heart: S1 S2, RRR Lungs: CTAB Abd: soft, nd/bs+, suprapubic tenderness Ext: no cyanosis or edema WBC: 34.3, neutrophils 77% & bands 13% UA: mod leuks, +nitrites, WBC TNTC, bacteria 4+ CXR: no acute process - Plan Date/Time: 09/19/17 1529 1. Acute encephalopathy 2/2 UTI: Patient with known hx of dementia. Ex- reports that he is not at his baseline and normally able to articulate his words very well. States at baseline he is oriented to self and knows his birthday. On exam today he is only A&Ox 1 (self). Monitor. 2. UTI: UA c/w with UTI. Given Rocephin and Vanc in the ED. Previous urine cxs showed sensitivity to Rocephin. In addition, he has had 2 prior blood cultures positive for MRSA and S. aureus. Thus, will continue both Rocephin and Vanc. Urine and bl cxs pending. 3. Leukocytosis: 2/2 to #1. WBC elevated at 34.3 with 77% neutrophils and 13% bands. Treat per #1. Monitor. 4. Elevated lactate: Lactate of 2.3. Given 1L bolus of NS in ED. Cont IVF. Repeat q2H. 5. Dementia: Currently not at baseline. Per previous records, patient on Seroquel. Ex- is not sure of his medications, but plans on bringing them to the hospital tonight. 6. HFpEF (55-60%): currently not in exacerbation. Monitor for fluid overload. Per previous records, on metoprolol and Lisinopril. Confirm meds with ex-. 7. HTN: stable. Monitor. 8. CAD: cont ASA. 9. Anxiety/Depression: per previous records, on celexa. Ex- plans on bringing home meds. 10. Diet: regular/ensure 11. PPx: lovenox 12. Code Status: Full I, Audrey Leonard, have evaluated this patient and agree with findings/ plan as outlined by internet project manager resident. Pertinent changes/additions are listed here. Attending Addendum - Attending Addendum Date/Time: 09/19/17 2963 I personally evaluated the patient and discussed the management with I agree with the History, Examination, Assessment and Plan documented above with any addition or exceptions noted below. Patient in assisted living ex notified EMS for change mental status admitted with AMS UTI r/o urosepsis patient RX Rocephin/Vancomycin as previous MRSA.
[2017-09-19 17:42] LABS: Lactic Acid 1.2 mmol/L (0.5-2.2)
[2017-09-19] MEDS ORDERED: Ondansetron ODT 4 MG TAB PO PRN (17:47)
[2017-09-19] MEDS ORDERED: Bisacodyl 5 MG TAB PO PRN (17:47)
[2017-09-19] MEDS ORDERED: Acetaminophen 325 MG TAB PO PRN (17:47)
[2017-09-19] MEDS: Sodium Chloride 0.9% 1,000 ML IV SCH (18:03)
[2017-09-20] MEDS: Sodium Chloride 0.9% 1,000 ML IV SCH ×4 (01:00→14:48)
[2017-09-20 02:27] VITALS: BMI 24.4
[2017-09-20] MEDS: Vancomycin HCl 1 GM in Premix Bag 1 BAG IVPB SCH ×2 (04:50→16:10)
[2017-09-20 05:06] LABS: Anion Gap 11 mmol/L (10-20); BUN (Urea Nitrogen) 24 mg/dL (8.4-25.7); Calc. Creatinine Clearance 92 mL/min (70-130); Calcium 8.7 mg/dL (7.8-10.44); Carbon Dioxide 25 mmol/L (23-31); Chloride 109 mmol/L (98-107); Estimated GFR-MDRD Greater than 90; Glucose 100 mg/dL (83-110); Potassium 3.5 mmol/L (3.5-5.1); Sodium 141 mmol/L (136-145)
[2017-09-20 05:14] LABS: Band 5 % (5-11); Hemoglobin 11.5 g/dL (14.0-18.0); Lymphocytes 9 % (21-51); MDiff Complete? YES; Mean Corpuscular HGB CONC 32.1 g/dL (32.0-36.0); Mean Corpuscular Hemoglobin 29.2 pg (27.0-31.0); Mean Corpuscular Volume 90.9 fl (80.0-94.0); Mean Platelet Volume 7.1 fL (7.4-10.4); Monocytes 5 % (0-10); Neutrophil 81 % (42-75); PLT Morphology Comment Appears Adequate; Platelet Count 232 thou/uL (130-400); RBC Distribution Width 13.2 % (11.5-14.5); RBC Morphology Normal; Red Blood Cell (RBC) Count 3.96 mill/uL (4.70-6.10); White Blood Cell (WBC) Count 27.3 thou/uL (4.8-10.8)
--- NOTE | 2017-09-20 06:26 | PDOC.FM ---
- Subjective Subjective: Patient's ex- was not available at time of interview. Patient is A&O x1. No reliable history is able to be obtained. - Objective Vital Signs & Weight: Vital Signs (12 hours) Temp Pulse Resp BP Pulse Ox 09/20/17 04:00 98.1 F 65 18 179/81 H 93 L 09/20/17 00:00 97.8 F 59 L 18 157/69 H 94 L 09/19/17 20:00 97.8 F 55 L 16 116/74 94 L Weight Weight 81.6 kg Result Diagrams: 09/20/17 04:39 09/20/17 04:39 <Michael Chavez - Last Filed: 09/20/17 07:44> - Objective Vital Signs & Weight: Vital Signs (12 hours) Temp Pulse Resp BP Pulse Ox 09/20/17 08:00 97.8 F 55 L 20 157/69 H 94 L 09/20/17 07:39 97.8 F 55 L 20 175/84 H 94 L 09/20/17 04:00 98.1 F 65 18 179/81 H 93 L 09/20/17 00:00 97.8 F 59 L 18 157/69 H 94 L Weight Weight 81.6 kg Result Diagrams: 09/20/17 04:39 09/20/17 04:39 <Blayne Camara - Last Filed: 09/20/17 11:17> Phys Exam - Physical Examination HEENT: moist MMs Respiratory: no wheezing, clear to auscultation bilateral Cardiovascular: RRR Gastrointestinal: soft, no distention, positive bowel sounds Suprapubic tenderness Musculoskeletal: no edema, pulses present Patient is unable to ambulate Lymphatic: no nodes Psychiatric: normal affect, A&O x 3 Skin: no rash <Michael Chavez - Last Filed: 09/20/17 07:44> Dx/Plan (1) Encephalopathy Code(s): G93.40 - ENCEPHALOPATHY, UNSPECIFIED Status: Acute (2) UTI (urinary tract infection) Status: Acute QualifierTitle: Urinary tract infection type: acute cystitis Hematuria presence: without hematuria Qualified Code(s): N30.00 - Acute cystitis without hematuria (3) Leukocytosis Code(s): D72.829 - ELEVATED WHITE BLOOD CELL COUNT, UNSPECIFIED Status: Acute (4) Elevated lactic acid level Code(s): R79.89 - OTHER SPECIFIED ABNORMAL FINDINGS OF BLOOD CHEMISTRY Status : Acute (5) Chronic diastolic (congestive) heart failure Code(s): I50.32 - CHRONIC DIASTOLIC (CONGESTIVE) HEART FAILURE Status: Chronic (6) Dementia Code(s): F03.90 - UNSPECIFIED DEMENTIA WITHOUT BEHAVIORAL DISTURBANCE Status: Chronic QualifierTitle: Dementia type: unspecified type (7) HLD (hyperlipidemia) Code(s): E78.5 - HYPERLIPIDEMIA, UNSPECIFIED Status: Chronic QualifierTitle: Hyperlipidemia type: unspecified Qualified Code(s): E78.5 - Hyperlipidemia, unspecified (8) HTN (hypertension) Code(s): I10 - ESSENTIAL (PRIMARY) HYPERTENSION Status: Chronic QualifierTitle: Hypertension type: essential hypertension Qualified Code( s): I10 - Essential (primary) hypertension (9) S/P splenectomy Status: Acute - Plan Plan: 1. Encephalopathy - Likely secondary to UTI - Will make fall precautions 2. UTI - Vancomycin 09/19, Ceftriaxone 09/19 - Blood culture pending - Urine culture pending - Will de-escalate therapy when cultures result 3. dCHF - Continue home meds when known 4. Dementia - Continue home meds when known 5. HTN - Continue home meds when known - Hydralazine PRN 6. HLD - Continue home meds when known 7. Elevated Lactic Acid - Repeat in two hours - Monitor for signs/symptoms of sepsis - IVF @ 150 ml/hr 8. Leukocytosis - Track with CBC, down to 27.1 today - Likely secondary to infection 9. S/P Splenectomy - Aggressive antibiotic coverage Disposition: Stable, will await culture results and his ex- to bring up home medications. <Michael Chavez - Last Filed: 09/20/17 07:44> (1) Encephalopathy Code(s): G93.40 - ENCEPHALOPATHY, UNSPECIFIED Status: Acute (2) UTI (urinary tract infection) Status: Acute Qualifiers: Urinary tract infection type: acute cystitis Hematuria presence: without hematuria Qualified Code(s): N30.00 - Acute cystitis without hematuria (3) Leukocytosis Code(s): D72.829 - ELEVATED WHITE BLOOD CELL COUNT, UNSPECIFIED Status: Acute (4) Elevated lactic acid level Code(s): R79.89 - OTHER SPECIFIED ABNORMAL FINDINGS OF BLOOD CHEMISTRY Status : Acute (5) Chronic diastolic (congestive) heart failure Code(s): I50.32 - CHRONIC DIASTOLIC (CONGESTIVE) HEART FAILURE Status: Chronic (6) Dementia Code(s): F03.90 - UNSPECIFIED DEMENTIA WITHOUT BEHAVIORAL DISTURBANCE Status: Chronic Qualifiers: Dementia type: unspecified type (7) HLD (hyperlipidemia) Code(s): E78.5 - HYPERLIPIDEMIA, UNSPECIFIED Status: Chronic Qualifiers: Hyperlipidemia type: unspecified Qualified Code(s): E78.5 - Hyperlipidemia , unspecified (8) HTN (hypertension) Code(s): I10 - ESSENTIAL (PRIMARY) HYPERTENSION Status: Chronic Qualifiers: Hypertension type: essential hypertension Qualified Code(s): I10 - Essential (primary) hypertension (9) S/P splenectomy Status: Acute <Blayne Camara - Last Filed: 09/20/17 11:17> Attending Addendum - Attending Addendum Date/Time: 09/20/17 1116 I personally evaluated the patient and discussed the management with Dr. Chavez I agree with the History, Examination, Assessment and Plan documented above with any addition or exceptions noted below. <Blayne Camara - Last Filed: 09/20/17 11:17>
[2017-09-20] MEDS: Enoxaparin Sodium 40 MG/0.4 ML SYRINGE SC SCH (08:21)
[2017-09-20] MEDS ORDERED: cefTRIAXone\\ROCEPHIN 1 GM in Sodium Chloride 0.9% 100 ML IVPB SCH (16:00)
[2017-09-20] MEDS ORDERED: cefTRIAXone\\ROCEPHIN 1 GM, Syringe 0.4 ML in Sterile Water 9.6 ML SLOW IVP SCH (17:00)
[2017-09-20] MEDS: hydrALAZINE 20 MG/ML VIAL SLOW IVP PRN (17:40)
[2017-09-20] MEDS ORDERED: Melatonin 3 MG TAB PO PRN (20:54)
[2017-09-20] MEDS ORDERED: Melatonin 3 MG TAB PO SCH (21:15)
[2017-09-21] MEDS: Vancomycin HCl 1 GM in Premix Bag 1 BAG IVPB SCH (04:50)
[2017-09-21 05:47] LABS: Vancomycin, Trough 15.7 ug/mL
--- NOTE | 2017-09-21 06:23 | PDOC.FM ---
- Subjective Subjective: Patient's ex- was not available at time of interview. A & O x1 this morning. Will try to contact patient's ex- today. - Objective Vital Signs & Weight: Vital Signs (12 hours) Temp Pulse Resp BP Pulse Ox 09/20/17 20:00 98.4 F 61 16 168/71 H 96 Weight Weight 81.6 kg I&O: 09/19/17 09/20/17 09/21/17 06:59 06:59 06:59 Intake Total 2150 Balance 2150 Result Diagrams: 09/20/17 04:39 09/20/17 04:39 <Michael Chavez - Last Filed: 09/21/17 10:41> - Objective Vital Signs & Weight: Vital Signs (12 hours) Temp Pulse Resp BP BP Pulse Ox 09/21/17 11:55 97.8 F 64 16 160/86 H 98 09/21/17 09:06 64 207/97 H 09/21/17 08:00 97.3 F L 64 18 95 09/21/17 07:59 97.3 F L 64 18 207/97 H 95 Weight Weight 81.6 kg I&O: 09/20/17 09/21/17 09/22/17 06:59 06:59 06:59 Intake Total 2150 Balance 2150 Result Diagrams: 09/20/17 04:39 09/20/17 04:39 <Blayne Camara - Last Filed: 09/21/17 12:33> Phys Exam - Physical Examination HEENT: moist MMs Respiratory: no wheezing, clear to auscultation bilateral Cardiovascular: RRR, no significant murmur Gastrointestinal: soft, non-tender, no distention, positive bowel sounds Musculoskeletal: no edema Neurological: non-focal, normal sensation, moves all 4 limbs Lymphatic: no nodes Psychiatric: normal affect, A&O x 3 Skin: no rash <Michael Chavez - Last Filed: 09/21/17 10:41> Dx/Plan (1) Encephalopathy Code(s): G93.40 - ENCEPHALOPATHY, UNSPECIFIED Status: Acute (2) UTI (urinary tract infection) Status: Acute QualifierTitle: Urinary tract infection type: acute cystitis Hematuria presence: without hematuria Qualified Code(s): N30.00 - Acute cystitis without hematuria (3) Leukocytosis Code(s): D72.829 - ELEVATED WHITE BLOOD CELL COUNT, UNSPECIFIED Status: Acute (4) Elevated lactic acid level Code(s): R79.89 - OTHER SPECIFIED ABNORMAL FINDINGS OF BLOOD CHEMISTRY Status : Acute (5) Chronic diastolic (congestive) heart failure Code(s): I50.32 - CHRONIC DIASTOLIC (CONGESTIVE) HEART FAILURE Status: Chronic (6) Dementia Code(s): F03.90 - UNSPECIFIED DEMENTIA WITHOUT BEHAVIORAL DISTURBANCE Status: Chronic QualifierTitle: Dementia type: unspecified type (7) HLD (hyperlipidemia) Code(s): E78.5 - HYPERLIPIDEMIA, UNSPECIFIED Status: Chronic QualifierTitle: Hyperlipidemia type: unspecified Qualified Code(s): E78.5 - Hyperlipidemia, unspecified (8) HTN (hypertension) Code(s): I10 - ESSENTIAL (PRIMARY) HYPERTENSION Status: Chronic QualifierTitle: Hypertension type: essential hypertension Qualified Code( s): I10 - Essential (primary) hypertension (9) S/P splenectomy Status: Acute - Plan Plan: 1. Encephalopathy - Likely secondary to UTI - Will make fall precautions - Likely back to his baseline mentation. 2. UTI - Vancomycin 09/19, Ceftriaxone 09/19 - Blood culture pending - Urine culture pending - E. coli positive urine culture sensitive to Macrobid and Ceftriaxone. 3. dCHF - Continue home meds when known 4. Dementia - Continue home meds when known 5. HTN - Continue home meds when known - Hydralazine PRN 6. HLD - Continue home meds when known 7. Elevated Lactic Acid - Repeat in two hours - Monitor for signs/symptoms of sepsis - IVF @ 150 ml/hr 8. Leukocytosis - Track with CBC, down to 27.1 today - Likely secondary to infection 9. S/P Splenectomy - Aggressive antibiotic coverage Disposition: Stable, will await culture results and his ex- for treatment discussions. Will likely be ready for discharge. <Michael Chavez - Last Filed: 09/21/17 10:41> (1) Encephalopathy Code(s): G93.40 - ENCEPHALOPATHY, UNSPECIFIED Status: Acute (2) UTI (urinary tract infection) Status: Acute Qualifiers: Urinary tract infection type: acute cystitis Hematuria presence: without hematuria Qualified Code(s): N30.00 - Acute cystitis without hematuria (3) Leukocytosis Code(s): D72.829 - ELEVATED WHITE BLOOD CELL COUNT, UNSPECIFIED Status: Acute (4) Elevated lactic acid level Code(s): R79.89 - OTHER SPECIFIED ABNORMAL FINDINGS OF BLOOD CHEMISTRY Status : Acute (5) Chronic diastolic (congestive) heart failure Code(s): I50.32 - CHRONIC DIASTOLIC (CONGESTIVE) HEART FAILURE Status: Chronic (6) Dementia Code(s): F03.90 - UNSPECIFIED DEMENTIA WITHOUT BEHAVIORAL DISTURBANCE Status: Chronic Qualifiers: Dementia type: unspecified type (7) HLD (hyperlipidemia) Code(s): E78.5 - HYPERLIPIDEMIA, UNSPECIFIED Status: Chronic Qualifiers: Hyperlipidemia type: unspecified Qualified Code(s): E78.5 - Hyperlipidemia , unspecified (8) HTN (hypertension) Code(s): I10 - ESSENTIAL (PRIMARY) HYPERTENSION Status: Chronic Qualifiers: Hypertension type: essential hypertension Qualified Code(s): I10 - Essential (primary) hypertension (9) S/P splenectomy Status: Acute <Blayne Camara - Last Filed: 09/21/17 12:33> Attending Addendum - Attending Addendum Date/Time: 09/21/17 1231 I personally evaluated the patient and discussed the management with Dr. Chavez I agree with the History, Examination, Assessment and Plan documented above with any addition or exceptions noted below. Plan dismissal resume home medication. <Blayne Camara - Last Filed: 09/21/17 12:33>
[2017-09-21] MEDS: Enoxaparin Sodium 40 MG/0.4 ML SYRINGE SC SCH (08:38)
[2017-09-21] MEDS: hydrALAZINE 20 MG/ML VIAL SLOW IVP PRN (09:06)
[2017-09-21 15:10] VITALS: BP 143/74; TEMP 98.4
--- NOTE | 2017-09-21 15:18 | PQF ---
CLINICAL DOCUMENTATION IMPROVEMENT CLARIFICATION FORM: ICD-10 Updated PLEASE DO AN ADDENDUM TO THE PROGRESS NOTE WITH ANY DOCUMENTATION UPDATES OR ADDITIONS AND CARRY THROUGH TO DC SUMMARY. THANK YOU. DATE: 09/21/17 ATTN: Dr. Chavez/ Attending Dr. Camara Please exercise your independent, professional judgment in responding to the clarification form. Clinical indicators are provided on the bottom of this form for your review Please check appropriate box(es): [ ] Sepsis due to UTI. [ ] UTI without sepsis. [ ] Severe sepsis with encephalopathy. [ ] Localized infection without sepsis [ x ] Other diagnosis _Leukocytosis with UTI [ ] Unable to determine In addition, please specify: Present on Admission (POA): [x ] Yes [ ] No [ ] Unable to determine For continuity of documentation, please document condition throughout progress notes and discharge summary. Thank You. CLINICAL INDICATORS - SIGNS / SYMPTOMS / LABS ER RECORD: EMS REPORTS LOW-GRADE FEVER OF 99.4 DX: UTI SEPSIS H&P: WBC ELEVATED AT 34.3 W/ 77% NEUTROPHILS & 13% BANDS. LACTATE OF 2.3 ATTENDING 09/19: ADMITTED WITH AMS UTI R/O UROSEPSIS PN 09/21: E. COLI POSITIVE URINE CULTURE SENSITIVE TO MACROBID & CEFTRIAXONE RISKS: H&P: HX DEMENTIA, CAD, HTN. ACUTE ENCEPHALOPATHY 2/2 UTI. 2 PRIOR BLOOD CULTURES POSITIVE FOR MRSA AND S. AUREUS. TREATMENT: H&P: CONTINUE BOTH ROCEPHIN AND VANC. Thank you, Iram (This form is maintained as a part of the permanent medical record) 2015 [employer]. All Rights Reserved Iram Curiel RN, BSN [email or web address] Office: [phone] [facility]
--- NOTE | 2017-09-22 06:09 | DIS-2 ---
DATE OF ADMISSION: 09/19/2017 DATE OF DISCHARGE: 09/21/2017 RESIDENT: Michael Chavez MD ADMITTING ATTENDING: Blayne Camara MD DISCHARGE ATTENDING: Blayne Camara MD CONSULTATION: For PT evaluation and treatment. PROCEDURE: The patient underwent a chest x-ray on 09/19/2017 that showed chronic obstructive pulmonary disease and atherosclerosis. PRIMARY DIAGNOSES: 1. Encephalopathy. 2. Urinary tract infection. 3. Leukocytosis. 4. Elevated lactic acid level. 5. Chronic diastolic heart failure. 6. Dementia. 7. Hyperlipidemia. 8. Hypertension. 9. Status post splenectomy. DISCHARGE MEDICATIONS: The patient did not provide a reliable medication list that we could use during the hospitalization. He was placed on nitrofurantoin 100 mg p.o. b.i.d. for 7 days for his urinary tract infection. He had to continue his home medication list per his PCP. DISCONTINUED MEDICATIONS: None. HISTORY OF PRESENT ILLNESS AND HOSPITAL COURSE: 77-year-old male presents with 1-day history of increased altered mental status. The patient states that he was feeling generally tired, but not exactly what brought him to the ED. EMS states his ex- called the EMS because of concern for UTI. He states he was having burning with urination. Denies any pain at the time of examination. The patient is not sure where he lives. He knows his name, but not location or date. His family was not present during this interview and the patient is not a reliable historian. During this hospitalization, it was determined that this patient was initially alert and oriented x1 that is apparently his baseline; however, he was not as articulate that his family and staff state was his norm. He had some notable lab values of a white blood cell count of 34.3 that down trended to 27.3. He also had a lactic acid that was 2.3, down trended to 1.2. The patient had a urinalysis that showed a moderate amount of urine blood, positive for urine nitrite, small amount of urine bilirubin, moderate amount of leukocyte esterase , 100 for protein, greater than 50 or too numerous to count for urine white blood cells, and 4+ urine bacteria. The patient's urine culture did grew out E. coli that was sensitive to ceftriaxone as well as nitrofurantoin. The patient also had blood cultures that showed no growth at 48 hours. This patient was afebrile during his entire hospitalization. He did have episodes where his blood pressure was high, ranging from 116/74 to as high as 207/97. Again, this patient did not provide a reliable medication history, and so just p.r.n. blood pressure medicine was used to control his blood pressure during this hospitalization. The patient again has end-stage dementia and lives in a shelter and became more articulate during this hospitalization, had no further complications from his urinary tract infection. At that time, it was decided that the patient was ready for discharge and was discharged in appropriate condition. DISPOSITION: Stable. DISCHARGE INSTRUCTIONS: 1. Location: He will be discharged back into the shelter that he lives in, where he receives 24-hour care. 2. Diet will be a heart healthy diet. 3. Activity will be with orthopedic limitations because the patient is nonambulatory. 4. Followup will be in 3 days with his primary care provider. We did not get a reliable list of medications or his primary care provider; however, records do indicate that he used to see [facility] over 2-1/ 2 years ago. We wish this patient best of luck and hope he has no further complications from this condition. NEEALM
== END 2017-09-21 15:29 | disposition home health service (06) | DRG 689 ==
LOC: ERS 12:42 → T4-A 15:45
PROVIDERS: ADMIT Family Medicine; ATTEND Family Medicine
DX: N30.00 Acute cystitis without hematuria (principal); G93.40 Encephalopathy, unspecified; E87.2 Acidosis; I50.32 Chronic diastolic (congestive) heart failure; I11.0 Hypertensive heart disease with heart failure; F03.90 Unspecified dementia, unspecified severity, without behavioral disturbance, psychotic disturbance, mood disturbance, and anxiety; E78.5 Hyperlipidemia, unspecified; B96.20 Unspecified Escherichia coli [E. coli] as the cause of diseases classified elsewhere; D72.829 Elevated white blood cell count, unspecified; I25.10 Atherosclerotic heart disease of native coronary artery without angina pectoris; F41.9 Anxiety disorder, unspecified; F32.9 Major depressive disorder, single episode, unspecified; I25.2 Old myocardial infarction
CPT/HCPCS: 36415; 51701; 71045; 80048; 80053; 80202; 81003; 81015; 83605; 85025; 87040; 87077; 87086; 87186; 93005; 96361; 96365; 96375; A4216; G8978-GP-CM; G8979-GP-CL; J0360; J0696; J1650; J3370; J7050

== ENCOUNTER 2018-01-08 19:08 | Emergency (ER) | payer MEDICARE, BC ==
[2018-01-08] MEDS ORDERED: Piperacillin/Tazobactam 4.5 GM VIAL ONE (20:10)
[2018-01-08 20:14] LABS: #Basophils 0.1 thou/uL (0.0-0.2); #Eosinphils 0.6 thou/uL (0.0-0.7); #Monocytes 0.9 thou/uL (0.11-0.59); %Basophils 0.8 % (0.0-1.0); %Eosinophils 6.7 % (0.0-10.0); %Lymphocytes 20.7 % (21.0-51.0); %Monocytes 9.7 % (0.0-10.0); Hemoglobin 13.6 g/dL (14.0-18.0); Mean Corpuscular HGB CONC 32.5 g/dL (32.0-36.0); Mean Corpuscular Hemoglobin 29.5 pg (27.0-31.0); Mean Corpuscular Volume 90.8 fL (78.0-98.0); Mean Platelet Volume 6.5 fL (7.4-10.4); Platelet Count 390 thou/uL (130-400); RBC Distribution Width 13.3 % (11.5-14.5); White Blood Cell (WBC) Count 9.6 thou/uL (4.8-10.8)
[2018-01-08 20:21] LABS: ALT (SGPT) 12 U/L (8-55); AST (SGOT) 19 U/L (5-34); Albumin 3.8 g/dL (3.4-4.8); Alkaline Phosphatase 134 U/L (40-150); Anion Gap 15 mmol/L (10-20); BUN (Urea Nitrogen) 27 mg/dL (8.4-25.7); Bilirubin, Total 0.3 mg/dL (0.2-1.2); CK (CPK) 84 U/L (30-200); Calc. Creatinine Clearance 0 mL/min (70-130); Calcium 9.5 mg/dL (7.8-10.44); Carbon Dioxide 27 mmol/L (23-31); Chloride 103 mmol/L (98-107); Estimated GFR-MDRD 63; Globulin 3.6 g/dL (2.4-3.5); Glucose 98 mg/dL (83-110); Magnesium 2.2 mg/dL (1.6-2.6); Potassium 4.6 mmol/L (3.5-5.1); Protein, Total 7.4 g/dL (5.8-8.1); Sodium 140 mmol/L (136-145)
[2018-01-08 20:26] LABS: CKMB 2.4 ng/mL (0-6.6); Troponin I 0.012 ng/mL (< 0.028)
[2018-01-08 20:57] LABS: Bilirubin Negative (Negative); Blood, Urine Negative (Negative); Clarity CLOUDY (Clear); Glucose, Urine (Dipstick) Negative (Negative); Leukocyte Moderate (Negative); Nitrite Positive (Negative); Protein, Urine (Dipstick) Negative (Neg-Trace); Specific Gravity, Urine 1.015 (1.002-1.036); pH, Urine 6.5 (5.0-9.0)
[2018-01-08 20:59] LABS: Bacteria/HPF 4+ HPF (None Seen); Hyaline Casts/LPF 0-3 HYALINE CAST LPF (0-3 Hyaline); RBC/HPF 0-3 HPF (0-3); Squamous Epithelial None Seen HPF (0-3); WBC/HPF 21-50 HPF (0-3)
--- NOTE | 2018-01-08 23:12 | RAD ---
CHEST ONE VIEW: HISTORY: Fever. COMPARISON: 09/19/2017 FINDINGS: There is atherosclerosis of the aorta. Normal cardiac silhouette. The pulmonary vessels and hilum a re normal. The lungs are hyperinflated. Stable partial obscuration of the lateral aspect of the lef t hemidiaphragm. The right costophrenic angle is clear. No pneumothorax or osseous abnormalities. IMPRESSION: 1. Hyperinflation with chronic changes. 2. Atherosclerosis. POS: [facility]
--- NOTE | 2018-01-08 23:20 | CT ---
NONCONTRAST HEAD CT: HISTORY: Altered mental status. COMPARISON: 04/18/2017 TECHNIQUE: A noncontrast head CT is performed from the skull base to the skull vertex. FINDINGS: No parenchymal hemorrhage. No extraaxial hematoma. No midline shift. The basilar cisterns are zamorano nt. Brain volume is age appropriate. Cortical posada white matter differentiation is preserved. The ventricles and sulci are patent and symmetric. 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 Chronic small vessel ischem ic changes of the white matter are identified. Adequate aeration of the sinuses and mastoid air cells. Cavernous carotid atherosclerosis. The calv arium is intact. IMPRESSION: No acute intracranial process. POS: [facility]
== END 2018-01-08 23:20 | disposition home or self-care (01) ==
LOC: ERS 19:08
DX: N39.0 Urinary tract infection, site not specified (principal); I25.10 Atherosclerotic heart disease of native coronary artery without angina pectoris; I25.2 Old myocardial infarction; I10 Essential (primary) hypertension; E78.5 Hyperlipidemia, unspecified; F41.9 Anxiety disorder, unspecified; F17.220 Nicotine dependence, chewing tobacco, uncomplicated; Z79.82 Long term (current) use of aspirin
CPT/HCPCS: 51701; 70450; 71045; 80053; 81003; 81015; 82550; 82553; 83605; 83735; 84443; 84484; 85025; 87040; 87077; 87086; 87186; 93005; 96361; 96365; 96367; J2543; J3370

== ENCOUNTER 2018-03-29 13:09 | Emergency (ER) | payer MEDICARE, BC ==
--- NOTE | 2018-03-29 15:10 | RAD ---
RIGHT SHOULDER 4 VIEWS: Date: 03/29/18 HISTORY: Injury to shoulder. COMPARISON: 01/08/18 chest x-ray. FINDINGS: Postoperative changes of the shoulder are noted related to what appears to be a previous rotator cuff repair. Arthritic changes of the AC joint similar to the prior examination. There is a mid to distal clavicle fracture. The proximal clavicle is inferiorly displaced in relation to the distal clavicle. IMPRESSION: Clavicular fracture is more of a mid shaft type fracture. POS: [facility]
== END 2018-03-29 14:59 | disposition home or self-care (01) ==
LOC: ERS 13:09
DX: S42.021A Displaced fracture of shaft of right clavicle, initial encounter for closed fracture (principal); I25.10 Atherosclerotic heart disease of native coronary artery without angina pectoris; I25.2 Old myocardial infarction; I10 Essential (primary) hypertension; E78.5 Hyperlipidemia, unspecified; F41.9 Anxiety disorder, unspecified; F17.220 Nicotine dependence, chewing tobacco, uncomplicated; W19.XXXA Unspecified fall, initial encounter